=== PATIENT | male | born 1975 | race Caucasian/White ===

== ENCOUNTER 2017-06-29 14:22 | Observation (INO) | payer OTHER, SELFPAY ==
[2017-06-29] VITALS (12 sets, daily range): BP systolic 129–158; BP diastolic 68–109; PULSE 80–117; RESP 15–22; TEMP 36.7–37.1; O2SAT 95–99; BMI 25.9
--- NOTE | 2017-06-29 14:29 | RAD_ITS ---
STUDY: X-RAY CHEST REASON FOR EXAM: Male, 41 years old. Sudden onset of chest pain and shortness of breath. TECHNIQUE: Single AP portable view of the chest. COMPARISON: None. FINDINGS: EKG electrodes are seen. The lungs are clear and expanded. There is no demonstrated pleural abnormality. Normal size heart. Normal mediastinum and khang. Normal visualized pulmonary arteries. Normal visualized aortic arch and descending thoracic aorta. Normal visualized thoracic spine. Normal visualized ribs, clavicles, and shoulders. There is no demonstrated abnormality of the visualized soft tissue structures of the upper abdomen. RAD/Chest 1 View (Portable) IMPRESSION: Normal x-ray examination of the chest. Electronically Signed: Gerardo Larose MD at 14:49 EST Tel [phone], Service support ,
--- NOTE | 2017-06-29 14:29 | EKG12_ITS ---
Test Reason : REPEAT-CP Blood Pressure : / mmHG Vent. Rate : 091 BPM Atrial Rate : 091 BPM P-R Int : 140 ms QRS Dur : 090 ms QT Int : 364 ms P-R-T Axes : 024 -02 016 degrees QTc Int : 447 ms Normal sinus rhythm Nonspecific T wave abnormality Abnormal ECG Confirmed by KERA DESHPANDE, MATT ([id number]), avid editor USHA FENG ([id number]) on 07/02/2017 3:32:35 PM Referred By: PAMELA Confirmed By:MATT COTE MD
--- NOTE | 2017-06-29 14:52 | ED.VISSUMM ---
- ER Visit Summary Date of Service: 06/29/17 Chief Complaint: Chest pain History of Present Illness: The patient is a 41 M 3 of cra-hvejapo-ydhsunqzn diabetes currently diet-controlled. Prior smoker currently quitting. No known cardiac history. No prior cardiac cath or stress test or cardiac workup according to him. An hour ago he was driving to work said he felt a little lightheaded and got midsternal chest pain like someone standing on my chest. He states he never had pain like this before. He did get slightly nauseated with it, broke out in sweat and was short of breath. He denies any recent exertional symptoms. He has never had a DVT or PE. He denies any recent travel surgery or hospitalization. He denies any hemoptysis. He denies any pleuritic nature of the pain. He denies any calf pain or swelling. Squad was called for the patient's chest pain they gave him sublingual nitro ?2 and aspirin in the setting greatly reduced his pain. Currently says about a 2-4 out of 10. But he feels much better. Physical Examination: Middle-aged male. No acute distress. Vital signs are stable and afebrile. He does not look septic or toxic. He is currently in no acute distress. Pulse ox is 97% on room air no signs of hypoxia. HEENT exam unremarkable. Neck nontender. No JVD. Lungs clear to auscultation bilaterally. Heart regular rhythm rate about 110 no murmur. Chest wall is completely nontender there is no reproducible chest wall pain. Abdomen soft nontender. Normal bowel sounds no peritoneal signs. He is moving all 4 extremities. Calves are nontender without edema or cords. He has equal and symmetrical palpable radial pulses. Skin is unremarkable. Back exam normal. Neurologically is awake and alert without any focal motor deficits. Test Results: She will undergo cardiac workup. CBC normal with a normal H&H and white count. BMP unremarkable except for the glucose of 568. Normal anion gap of 15. Bicarbonate 15 normal BUN and creatinine. Troponin was normal. EKG was sinus tachycardia 111 no acute signs of OR or ischemia. Chest x-ray showed no acute process normal cardiac silhouette and mediastinum read both by myself the radiologist. Read repeat EKG prior to admission showed a sinus rhythm a rate of 91 with no acute abnormality. No signs of OR or ischemia. Emergency Department Course and Treatment: Topical nitroglycerin. Aspirin previously given by squad. Due to his elevated blood sugar was given subcu insulin. Treatment Plan: Repeat exam patient is doing much better 1520. Disposition: Admission Impression: Acute chest pain uncertain etiology resolved by nitroglycerin History of diabetes Hyperglycemia This note was generated with [employer] dictation software. It may contain incorrect words, spelling, and punctuation that were not noted in review of the chart prior to signing ED Disposition - Plan for ED Patient: Chief Complaint: Chest Pain Referrals: Chato Gusman MD [Primary Care Provider] -
[2017-06-29] MEDS: Nitroglycerin Oint 1 INCH PACKET TRANSDERM. (14:53)
--- NOTE | 2017-06-29 14:56 | ED.DCSUM_ITS ---
- ER Visit Summary Date of Service: 06/29/17 Chief Complaint: Chest pain History of Present Illness: The patient is a 41 M 3 of gcl-aagzhus-birspfopx diabetes currently diet-controlled. Prior smoker currently quitting. No known cardiac history. No prior cardiac cath or stress test or cardiac workup according to him. An hour ago he was driving to work said he felt a little lightheaded and got midsternal chest pain like someone standing on my chest. He states he never had pain like this before. He did get slightly nauseated with it, broke out in sweat and was short of breath. He denies any recent exertional symptoms. He has never had a DVT or PE. He denies any recent travel surgery or hospitalization. He denies any hemoptysis. He denies any pleuritic nature of the pain. He denies any calf pain or swelling. Squad was called for the patient's chest pain they gave him sublingual nitro ?2 and aspirin in the setting greatly reduced his pain. Currently says about a 2-4 out of 10. But he feels much better. Physical Examination: Middle-aged male. No acute distress. Vital signs are stable and afebrile. He does not look septic or toxic. He is currently in no acute distress. Pulse ox is 97% on room air no signs of hypoxia. HEENT exam unremarkable. Neck nontender. No JVD. Lungs clear to auscultation bilaterally. Heart regular rhythm rate about 110 no murmur. Chest wall is completely nontender there is no reproducible chest wall pain. Abdomen soft nontender. Normal bowel sounds no peritoneal signs. He is moving all 4 extremities. Calves are nontender without edema or cords. He has equal and symmetrical palpable radial pulses. Skin is unremarkable. Back exam normal. Neurologically is awake and alert without any focal motor deficits. Test Results: She will undergo cardiac workup. CBC normal with a normal H&H and white count. BMP unremarkable except for the glucose of 568. Normal anion gap of 15. Bicarbonate 15 normal BUN and creatinine. Troponin was normal. EKG was sinus tachycardia 111 no acute signs of MS or ischemia. Chest x-ray showed no acute process normal cardiac silhouette and mediastinum read both by myself the radiologist. Read repeat EKG prior to admission showed a sinus rhythm a rate of 91 with no acute abnormality. No signs of MS or ischemia. Emergency Department Course and Treatment: Topical nitroglycerin. Aspirin previously given by squad. Due to his elevated blood sugar was given subcu insulin. Treatment Plan: Repeat exam patient is doing much better 1520. Disposition: Admission Impression: Acute chest pain uncertain etiology resolved by nitroglycerin History of diabetes Hyperglycemia This note was generated with [employer] dictation software. It may contain incorrect words, spelling, and punctuation that were not noted in review of the chart prior to signing ED Disposition - Plan for ED Patient: Chief Complaint: Chest Pain Referrals: Chato Gusman MD [Primary Care Provider] -
[2017-06-29 14:59] LABS: Absolute Lymphocyte Count 1.87 X10^3/ul (0.83-4.51); Absolute Neutrophil Count 7.8 X10^3/uL (2.0-7.7); Basophil# 0.05 X10^3/uL; Basophil% 0.5 % (0-1); Eosinophils% 0.9 % (0-5); Hematocrit 44.3 % (40-54); Lymphocyte # 1.87 X10^3/ul (4.0); Lymphocyte % 17.6 % (19-41); Mean Corpuscular Volume 82.2 fL (80-94); Mean Platelet Vol. 9.9 fl (6.2-12.0); Monocyte# 0.76 X10^3/uL; Monocyte% 7.2 % (0-10); Neutrophil # 7.77 X10^3/uL (2.7-7.7); Neutrophil % 73.1 % (47-70); Platelet Count 309 K/mm3 (150-450); RBC Distribution Width CV 12.2 % (11.6-14.6); RBC Distribution Width SD 36.5 fl (35.1-43.9); Red Blood Count 5.39 M/mm3 (4.6-6.2); White Blood Count 10.6 K/mm3 (4.4-11.0)
[2017-06-29 15:01] LABS: Hemoglobin 15.8 g/dl (13.0-16.5)
[2017-06-29 15:02] LABS: Mean Corp Hgb Conc 35.7 g/gl (32-36); Mean Corpuscular Hgb 29.3 pg (27.0-32.0); POSITIVE COUNT NO; POSITIVE DIFFERENTIAL NO; POSITIVE MORPHOLOGY NO
[2017-06-29 15:05] LABS: Anion Gap 15 (5-15); BUN 14 mg/dL (7-18); BUN/Creat Ratio 13.7 RATIO (10-20); Calcium,Total 8.8 mg/dL (8.5-10.1); Chloride 106 mmol/L (98-107); Creatinine, Serum 1.02 mg/dL (0.70-1.30); EST Glomerular Filtration Rate 86 mL/min (>60); Est Glom Filt Rate - Afr Amer 104 mL/min (>60); Estimated Creatinine Clearance 100.39 ml/min; Glucose 568 mg/dL (74-106); Potassium 3.9 mmol/L (3.5-5.1); Sodium Level 136 mmol/L (136-145)
--- NOTE | 2017-06-29 15:23 | EKG12_ITS ---
Test Reason : CP Blood Pressure : / mmHG Vent. Rate : 111 BPM Atrial Rate : 111 BPM P-R Int : 130 ms QRS Dur : 086 ms QT Int : 322 ms P-R-T Axes : 040 -03 085 degrees QTc Int : 437 ms Sinus tachycardia Nonspecific T wave abnormality Abnormal ECG Confirmed by KERA DESHPANDE, MATT ([id number]), marketing editor USHA FENG ([id number]) on 07/02/2017 3:32:52 PM Referred By: PAMELA/DEMETRICE Confirmed By:MATT COTE MD
[2017-06-29] MEDS: 0.9% Normal Saline 1,000 ML 999 ML IV (15:28)
--- NOTE | 2017-06-29 16:35 | HP.PCM_ITS ---
Problem List (1) Atypical chest pain Status: Acute (2) Diabetes mellitus type 2 Status: Chronic (3) Bronchial asthma Status: Chronic History of Present Illness Date of Admission: 06/29/17 Chief Complaint: Chest pain today The patient is a 41 year old M with history of chronic stable asthma, no recent exacerbation, not using albuterol, diabetes mellitus type 2, diet-controlled, recently stopped metformin came to ER with sudden onset of left-sided chest tightness in the afternoon today. Chest pain started while he was driving, associated with mild shortness of breath, lightheadedness and diaphoresis. Chest pain was localized and much improved after sublingual nitro ?2 and aspirin but patient still has little bit pain. He denies any previous heart attack, coronary artery disease never had chest pain to this degree of severity. In ED, he had a chest x-ray is reported as normal. EKG shows sinus tachycardia at [address]-T changes. Basic lab work shows glucose 568. First troponin negative. [] Past Medical History Past Medical History (Chronic Problems): Chronic Problems Diabetes mellitus type 2 (Chronic) Bronchial asthma (Chronic) Allergies No Known Allergies Allergy (Verified 08/15/16 18:03) Smoking Status: Never smoker - *Family History Paternal History Items: - - His father does not have cardiac history but his uncles have. No family history of coronary artery disease in first-degree family Review of Systems Constitutional: Denies: Chills, Fever, Weight Change HEENT: Denies: Head Aches, Sinus Congestion, Sinus Drainage Cardiovascular: Reports: Chest Pain, Chest Tightness. Denies: Palpitations Respiratory: Reports: Shortness of breath at rest. Denies: Cough, Sputum production Gastrointestinal: Denies: Abdominal Pain, Nausea, Vomiting Genitourinary: Denies: Dysuria Musculoskeletal: Denies: Joint Pain, Joint Tenderness Skin: Denies: Rash, Wounds Neurological: Denies: Numbness, Tingling, Focal weakness Psychiatric: Denies: Anxiety, Depression, Homicidal Ideations, Suicidal Ideations Hematologic/ Lymphatic: Denies: Easy Bruising, Easy Bleeding VTE Information - Inpt Only VTE Present on Admission: No VTE Mechan Device Prophylaxis: SCD's VTE Pharm Prophylaxis ordered?: No Reason prophylaxis not ordered:: Procedure Not Indicated Patient Problems: Active and Suspected Problems Atypical chest pain (Acute) - Physical Exam General: Alert, Oriented x3, Cooperative HEENT: Atraumatic, PERRLA, EOMI, Normocephalic Oral: Moist Mucosa Neck: Supple, No JVD, Negative Carotid Bruits Lungs: Clear to auscultation, Normal air movement, No rhonchi, No wheeze, No rales Cardiovascular: Regular rate, Regular Rhythm, Normal S1, Normal S2, No murmurs Abdomen: Bowel Sounds Present, Soft, Non Tender, Non-Distended Extremities: No edema, Capillary Refill Less than 3 Seconds Skin: No rashes, No breakdown Musculoskeletal: No Tenderness to Palpation of Joints or Extremities Neurological: Cranial nerves II-XII grossly intact Psych/Mental Status: Normal Affect, Appropriate Vital Signs Temp Pulse Resp BP Pulse Ox 98.6 F 89 16 131/81 H 97 06/29/17 14:23 06/29/17 15:48 06/29/17 15:48 06/29/17 15:48 06/29/17 15:48 Oxygen Flow Rate 2 Oxygen Delivery Method Room Air Weight: 180 lb 5.763 oz Body Mass Index (BMI) 25.9 Laboratory Tests Past 24 Hrs 06/29/17 06/29/17 14:29 14:29 WBC 10.6 RBC 5.39 Hgb 15.8 Hct 44.3 MCV 82.2 MCH 29.3 MCHC 35.7 RDW 12.2 RDW Differential 36.5 Plt Count 309 MPV 9.9 Immature Gran % (Auto) 0.700 Neut % (Auto) 73.1 H Lymph % (Auto) 17.6 L Hayes % (Auto) 7.2 Eos % (Auto) 0.9 Baso % (Auto) 0.5 Absolute Neuts (auto) 7.8 H Absolute Lymphs (auto) 1.87 Total Counted Not Reportable Sodium 136 Potassium 3.9 Chloride 106 Carbon Dioxide 15.0 L Anion Gap 15 BUN 14 Creatinine 1.02 Estim Creat Clear Calc 100.39 Est GFR (MDRD) Af Amer 104 Est GFR (MDRD) Non-Af 86 BUN/Creatinine Ratio 13.7 Glucose 568 H* Calcium 8.8 Troponin I < 0.02 Assessment/Plan Active and Suspected Problems Atypical chest pain (Acute) The patient is a 41 year old M with history of chronic stable asthma, no recent exacerbation, not using albuterol, diabetes mellitus type 2, diet-controlled, recently stopped metformin came to ER with sudden onset of left-sided chest tightness in the afternoon today. Chest pain started while he was driving, associated with mild shortness of breath, lightheadedness and diaphoresis. Chest pain was localized and much improved after sublingual nitro ?2 and aspirin but patient still has little bit pain. He denies any previous heart attack, coronary artery disease never had chest pain to this degree of severity. In ED, he had a chest x-ray is reported as normal. EKG shows sinus tachycardia at [address]-T changes. Basic lab work shows glucose 568. First troponin negative. 1. Atypical chest pain with concern for acute coronary syndrome: Patient is being admitted on the cardiac floor. On ACS protocol with serial cardiac enzymes, aspirin, sublingual nitro as needed and nystatin. Fasting lipid profile tomorrow morning. Treadmill nuclear stress test tomorrow morning. 2. Diabetes mellitus type 2 adult onset: Patient not taking any oral hypoglycemic agent. A1c tomorrow a.m. Accu-Chek before meals and at bedtime and cover with NovoLog sliding scale. Started on Levemir 10 units subcu at bedtime daily. Medicaid Eligibility Specialist consult. 3. hypertension: Patient probably has undiagnosed hypertension. Blood pressure was 158/109 as per triage vitals. Currently 131/81. Added on lisinopril 5 mg oral daily. Chronic stable asthma: No recent exacerbation. Albuterol inhaler as needed. DVT prophylaxis: Low risk. On bilateral SCDs. No pharmacological prophylaxis is indicated. Laboratory Results 06/29/17 14:29: WBC 10.6, RBC 5.39, Hgb 15.8, Hct 44.3, MCV 82.2, MCH 29.3, MCHC 35.7, RDW 12.2, RDW Differential 36.5, Plt Count 309, MPV 9.9, Immature Gran % (Auto) 0.700, Neut % (Auto) 73.1 H, Lymph % (Auto) 17.6 L, Hayes % (Auto) 7.2, Eos % (Auto) 0.9, Baso % (Auto) 0.5, Absolute Neuts (auto) 7.8 H, Absolute Lymphs (auto) 1.87, Total Counted Not Reportable 06/29/17 14:29: Sodium 136, Potassium 3.9, Chloride 106, Carbon Dioxide 15.0 L, Anion Gap 15, BUN 14, Creatinine 1.02, Estim Creat Clear Calc 100.39, Est GFR ( MDRD) Af Amer 104, Est GFR (MDRD) Non-Af 86, BUN/Creatinine Ratio 13.7, Glucose 568 H*, Calcium 8.8, Troponin I < 0.02 Clinical Impression(s) from Imaging Studies Chest X-Ray 06/29/17 14:29 IMPRESSION: Normal x-ray examination of the chest. Electronically Signed: Gerardo Larose MD at 14:49 EST Tel [phone], Service support , Code Visit OBSV E&M: [id number] Initial observation care L3
[2017-06-29 17:37] LABS: Bedside Glucose 289 mg/dL (70-110)
[2017-06-29] MEDS: Lisinopril 5 MG Tablet PO (18:19)
[2017-06-29] MEDS: Acetaminophen 325 MG Tablet 650 MG PO (21:35)
[2017-06-29] MEDS: Atorvastatin Calcium 40 MG Tablet PO (21:36)
[2017-06-29 21:46] LABS: Bedside Glucose 266 mg/dL (70-110)
[2017-06-30 03:01] VITALS: PULSE 71
[2017-06-30 04:54] LABS: Absolute Lymphocyte Count 4.06 X10^3/ul (0.83-4.51); Absolute Neutrophil Count 5.1 X10^3/uL (2.0-7.7); Basophil# 0.04 X10^3/uL; Basophil% 0.4 % (0-1); Eosinophil# 0.22 X10^3/uL; Eosinophils% 2.1 % (0-5); Hematocrit 47.8 % (40-54); Hemoglobin 16.4 g/dl (13.0-16.5); Lymphocyte # 4.06 X10^3/ul (4.0); Lymphocyte % 38.7 % (19-41); Mean Corp Hgb Conc 34.3 g/gl (32-36); Mean Corpuscular Hgb 29.7 pg (27.0-32.0); Mean Corpuscular Volume 86.4 fL (80-94); Mean Platelet Vol. 9.5 fl (6.2-12.0); Monocyte# 0.98 X10^3/uL; Monocyte% 9.3 % (0-10); Neutrophil # 5.12 X10^3/uL (2.7-7.7); Neutrophil % 48.8 % (47-70); POSITIVE COUNT NO; POSITIVE DIFFERENTIAL NO; POSITIVE MORPHOLOGY NO; Platelet Count 288 K/mm3 (150-450); Prothrombin Time (Protime)PT. 13.2 SECONDS (11.7-14.9); RBC Distribution Width CV 12.4 % (11.6-14.6); RBC Distribution Width SD 39.5 fl (35.1-43.9); Red Blood Count 5.53 M/mm3 (4.6-6.2); White Blood Count 10.5 K/mm3 (4.4-11.0)
[2017-06-30 04:55] LABS: Partial Thromboplast Time 27.4 Seconds (24.1-36.2)
[2017-06-30 05:16] VITALS: BP 122/64; PULSE 80; RESP 18; TEMP 36.9; O2SAT 95
[2017-06-30] MEDS: Lisinopril 5 MG Tablet PO (05:20)
[2017-06-30] MEDS: Aspirin E.C. 81 MG Tablet PO (05:21)
[2017-06-30 05:28] LABS: Anion Gap 9 (5-15); BUN 11 mg/dL (7-18); BUN/Creat Ratio 12.8 RATIO (10-20); Chloride 103 mmol/L (98-107); Cholesterol 239 mg/dL (200); Creatinine, Serum 0.86 mg/dL (0.70-1.30); EST Glomerular Filtration Rate 105 mL/min (>60); Est Glom Filt Rate - Afr Amer 127 mL/min (>60); Estimated Creatinine Clearance 119.07 ml/min; Glucose 254 mg/dL (74-106); High Density Lipoprotein 57 mg/dL; Potassium 3.7 mmol/L (3.5-5.1); Sodium Level 139 mmol/L (136-145); Thyroid Stim Hormone (TSH) 0.92 uIU/mL (0.358-3.74); Triglycerides 101 mg/dL; Very Low Density Lipoprotein 20 mg/dL (5-40)
--- NOTE | 2017-06-30 05:55 | EKG12_ITS ---
Test Reason : AM EKG Blood Pressure : / mmHG Vent. Rate : 073 BPM Atrial Rate : 073 BPM P-R Int : 146 ms QRS Dur : 096 ms QT Int : 390 ms P-R-T Axes : -11 -08 014 degrees QTc Int : 429 ms Normal sinus rhythm Nonspecific T wave abnormality Confirmed by NARGIS DESHPANDE, JANETH ([id number]), technical writer and editor USHA FENG ([id number]) on 07/04/2017 3:04:19 PM Referred By: DR BARBER Confirmed By:JANETH BARILLAS MD
[2017-06-30 06:56] LABS: Bedside Glucose 265 mg/dL (70-110)
[2017-06-30 07:21] VITALS: PULSE 79
[2017-06-30 08:56] LABS: Hemoglobin A1c 11.6 % (4.2-6.3)
[2017-06-30 10:40] VITALS: BP 122/78; PULSE 88; RESP 18; TEMP 37.1; O2SAT 96
[2017-06-30 10:51] LABS: Bedside Glucose 295 mg/dL (70-110)
[2017-06-30 10:56] VITALS: PULSE 83
--- NOTE | 2017-06-30 11:33 | STRESSREP ---
Stress Test Report Exercise myocardial perfusion stress test 41-year-old man with a history of chest pain. Stress Protocol: Resting EKG demonstrates normal sinus rhythm with a rate of 79 bpm. Resting blood pressure is 120/80 mmHg. The patient exercised according to the regular Carlos protocol for total duration of 8 minutes completing 2 minutes into stage III of the Carlos protocol. The maximum heart rate attained was 157 bpm which was 86% of the maximum predicted heart rate the maximum workload attained was 10.[address] Were no ST or T-wave changes noted suggest ischemia upsloping ST changes only were noted. The resting blood pressure is 134/84 with a peak blood pressure 164/72. Myocardial perfusion protocol. 11.8 mCi of technetium 99m sestamibi injected at rest. The patient then exercised for 8 minutes attaining 86% of the maximum predicted heart rate and a workload of 10.1 metabolic equivalents. At peak exercise 35.2 mCi of technetium 99m sestamibi was injected. Stress images were obtained. Stress and rest images were reconstructed and compared in the short axis vertical long and horizontal long axis. Gated images were also obtained. Perfusion SPECT analysis. Review of the images demonstrate normal uptake of tracer noted in all areas of the myocardium on the stress images. There is some GI attenuation artifact noted. The resting images similarly demonstrate normal uptake of tracer noted in all areas of the myocardium with the GI attenuation artifact. No reversibility is noted suggest ischemia no previous infarct is noted. Gated SPECT analysis: The gated ejection fraction is noted to be 53%. Conclusion: Normal exercise myocardial perfusion stress test at a high workload. Preserved ejection fraction.
--- NOTE | 2017-06-30 14:25 | DCINST_ITS ---
- Discharge Diagnoses Current Active Problems: Current Active and Chronic Problems Atypical chest pain (Acute) Diabetes mellitus type 2 (Chronic) Bronchial asthma (Chronic) You will use the following diet at home:: Other - Cardiac/low cholesterol, carbohydrate controlled Discharge Activity: Return to Normal Activity Call your doctor if you observe: Fever of 101 or Higher, Shortness of breath, Dizziness, Fainting spells, Chest pain, Increased palpitations (irregular heartbeat) Additional Instructions: You will need to check your blood sugar 3 times daily before meals and at bedtime. Recommend follow-up with an paralegal instructor to better manage your diabetes. Allergies/Adverse Reactions: Allergies No Known Allergies Allergy (Verified 08/15/16 18:03) Medications to take at Discharge Atorvastatin Calcium [Lipitor] 40 mg PO QHS #30 tab 06/30/17 Insulin Aspart [Novolog Flexpen] See Protocol SC ACHS #1 flexpen 06/30/17 Insulin Detemir [Levemir FlexPen] 20 units SC QHS #1 insuln.pen 06/30/17 Lisinopril [Zestril] 5 mg PO DAILY #30 tab 06/30/17 The following prescriptions were given: Atorvastatin Calcium [Lipitor] 40 mg PO QHS #30 tab Insulin Aspart [Novolog Flexpen] See Protocol SC ACHS #1 flexpen Insulin Detemir [Levemir FlexPen] 20 units SC QHS #1 insuln.pen Lisinopril [Zestril] 5 mg PO DAILY #30 tab Primary Care Physician: Chato Gusman MD [Primary Care Provider] - Please follow up with your Primary Care Physician in: 1 Week Please Follow Up With: Elina Mcbride NP-C When: 1 Week Proposed Discharge Date: 06/30/17
--- NOTE | 2017-06-30 14:29 | PCM.DC.SUM ---
Discharge Date and Diagnosis Date of Admission: 06/29/17 Date of Discharge: 06/30/17 - - Primary Discharge Diagnosis Active and Suspected Problems Atypical chest pain- ACS ruled out Uncontrolled type 2 diabetes mellitus - Secondary Discharge Diagnosis Chronic Problems Diabetes mellitus type 2 (Chronic) Bronchial asthma (Chronic) HTN HLD Hospital Course and Treatment Imaging Results: Diagnostic Data Chest X-Ray 06/29/17 14:29 IMPRESSION: Normal x-ray examination of the chest. Electronically Signed: Gerardo Larose MD at 14:49 EST Tel [phone], Service support , Operations: None Procedures: Stress test Summary of Care Provided: The patient is a 41 year old M admitted 06/29/17 due to chest pain. He has a past medical history of chronic stable asthma, type 2 diabetes mellitus, hypertension. Acute coronary syndrome ruled out. Patient underwent nuclear stress test which was negative for ischemia. Troponin negative ?4. Patient denies further chest pain. Blood glucose was found to be 568 on admission. Hemoglobin A1c 11.6%. Patient states he was previously on metformin but recently has been diet-controlled. Patient was started on sliding scale insulin and Levemir 20 units nightly. Recommend follow-up with REAL mcbride, endocrinology for closer monitoring of diabetes. Patient was started on a statin for hyperlipidemia. Patient previously on lisinopril which she states was discontinued for unknown reason. Patient's blood pressure was elevated during admission. He was started on lisinopril 5 mg daily and blood pressure improved. Recommend continued monitoring by primary care physician. Patient has blood glucose testing supplies at home and was instructed on how to use insulin and when to notify provider. Patient seen and examined prior to discharge. Denies further chest pain. Heart rate regular rate and rhythm. Lungs clear. Abdomen soft, nontender. Neuro grossly intact. Vital signs stable. Patient is stable for discharge home with the recommendations as noted above. This patient was seen by JESSEE Villatoro under the supervision of Dr. Puga. Discharge Diet: Low fat/ Low Cholesterol, Carb Control Diet Discharge Activity: Return to Normal Activity Call your doctor if you observe: Fever of 101 or Higher, Shortness of breath, Dizziness, Fainting spells, Chest pain, Increased palpitations (irregular heartbeat) Home Medications: Medications to take at Discharge Atorvastatin Calcium [Lipitor] 40 mg PO QHS #30 tab 06/30/17 Insulin Aspart [Novolog Flexpen] See Protocol SC ACHS #1 flexpen 06/30/17 Insulin Detemir [Levemir FlexPen] 20 units SC QHS #1 insuln.pen 06/30/17 Lisinopril [Zestril] 5 mg PO DAILY #30 tab 06/30/17 Following Prescrptions Were Given to Patient: Atorvastatin Calcium [Lipitor] 40 mg PO QHS #30 tab Insulin Aspart [Novolog Flexpen] See Protocol SC ACHS #1 flexpen Insulin Detemir [Levemir FlexPen] 20 units SC QHS #1 insuln.pen Lisinopril [Zestril] 5 mg PO DAILY #30 tab Primary Care Physician: Chato Gusman MD [Primary Care Provider] - Please follow up with your Primary Care Physician in: 1 Week Please Follow Up With: Elina Mcbride SPARE HAND-C When: 1 Week Disposition: Home Minutes spent on discharge:: 35 Patient Condition:: Stable Meaningful Use Info Meaningful Use Diagnoses (Choose all that apply): None applicable
--- NOTE | 2017-06-30 14:37 | DS.PCM_ITS ---
Discharge Date and Diagnosis Date of Admission: 06/29/17 Date of Discharge: 06/30/17 - - Primary Discharge Diagnosis Active and Suspected Problems Atypical chest pain- ACS ruled out Uncontrolled type 2 diabetes mellitus - Secondary Discharge Diagnosis Chronic Problems Diabetes mellitus type 2 (Chronic) Bronchial asthma (Chronic) HTN HLD Hospital Course and Treatment Imaging Results: Diagnostic Data Chest X-Ray 06/29/17 14:29 IMPRESSION: Normal x-ray examination of the chest. Electronically Signed: Gerardo Larose MD at 14:49 EST Tel [phone], Service support , Operations: None Procedures: Stress test Summary of Care Provided: The patient is a 41 year old M admitted 06/29/17 due to chest pain. He has a past medical history of chronic stable asthma, type 2 diabetes mellitus, hypertension. Acute coronary syndrome ruled out. Patient underwent nuclear stress test which was negative for ischemia. Troponin negative ?4. Patient denies further chest pain. Blood glucose was found to be 568 on admission. Hemoglobin A1c 11.6%. Patient states he was previously on metformin but recently has been diet-controlled. Patient was started on sliding scale insulin and Levemir 20 units nightly. Recommend follow-up with [facility], endocrinology for closer monitoring of diabetes. Patient was started on a statin for hyperlipidemia. Patient previously on lisinopril which she states was discontinued for unknown reason. Patient's blood pressure was elevated during admission. He was started on lisinopril 5 mg daily and blood pressure improved. Recommend continued monitoring by primary care physician. Patient has blood glucose testing supplies at home and was instructed on how to use insulin and when to notify provider. Patient seen and examined prior to discharge. Denies further chest pain. Heart rate regular rate and rhythm. Lungs clear. Abdomen soft, nontender. Neuro grossly intact. Vital signs stable. Patient is stable for discharge home with the recommendations as noted above. This patient was seen by JESSEE Villatoro under the supervision of Dr. Puga. Discharge Diet: Low fat/ Low Cholesterol, Carb Control Diet Discharge Activity: Return to Normal Activity Call your doctor if you observe: Fever of 101 or Higher, Shortness of breath, Dizziness, Fainting spells, Chest pain, Increased palpitations (irregular heartbeat) Home Medications: Medications to take at Discharge Atorvastatin Calcium [Lipitor] 40 mg PO QHS #30 tab 06/30/17 Insulin Aspart [Novolog Flexpen] See Protocol SC ACHS #1 flexpen 06/30/17 Insulin Detemir [Levemir FlexPen] 20 units SC QHS #1 insuln.pen 06/30/17 Lisinopril [Zestril] 5 mg PO DAILY #30 tab 06/30/17 Following Prescrptions Were Given to Patient: Atorvastatin Calcium [Lipitor] 40 mg PO QHS #30 tab Insulin Aspart [Novolog Flexpen] See Protocol SC ACHS #1 flexpen Insulin Detemir [Levemir FlexPen] 20 units SC QHS #1 insuln.pen Lisinopril [Zestril] 5 mg PO DAILY #30 tab Primary Care Physician: Chato Gusman MD [Primary Care Provider] - Please follow up with your Primary Care Physician in: 1 Week Please Follow Up With: [facility] When: 1 Week Disposition: Home Minutes spent on discharge:: 35 Patient Condition:: Stable Meaningful Use Info Meaningful Use Diagnoses (Choose all that apply): None applicable
--- NOTE | 2017-09-10 09:49 | CASEMGMT ---
[facility] received fax from [facility] in regards to pt not picking up meds from visit in June. Call placed to Dr. Naseem Melissa's CM, and she advises to fax paperwork to Dr. Gusman's office at [phone] at this time and she will let them know at this time. She states that they will f/u with pt. Kaylyn VAZQUEZ CM
== END 2017-06-30 11:51 | disposition home or self-care (01) ==
LOC: ED 14:48 → PCU 16:27
PROVIDERS: Admitting Provider Internal Medicine; Emergency Provider Emergency Medicine; Family Provider Family Medicine; PCP Family Medicine; Visit Provider Internal Medicine
DX: R07.89 Other chest pain (principal); J45.909 Unspecified asthma, uncomplicated; I10 Essential (primary) hypertension; R00.0 Tachycardia, unspecified; R42 Dizziness and giddiness; E11.65 Type 2 diabetes mellitus with hyperglycemia; E78.5 Hyperlipidemia, unspecified; Z87.891 Personal history of nicotine dependence
CPT/HCPCS: 36415; 71045; 78452; 80048; 80061; 82962; 83036; 84443; 84484; 85025; 85379; 85610; 85730; 93005; 93017; 97802; 99218; 99285; 99406; A9500; J7030; A4216; G0378

== ENCOUNTER 2017-12-21 17:09 | Emergency (ER) | payer OTHER, SELFPAY ==
[2017-12-21 17:09] VITALS: BP 137/101; PULSE 119; RESP 16; TEMP 37.2; O2SAT 98; BMI 29.0
--- NOTE | 2017-12-21 18:01 | CT_ITS ---
STUDY: CT BRAIN WITHOUT CONTRAST REASON FOR EXAM: Male, 42 years old. Fell down 8-10 steps. RADIATION DOSAGE (If Supplied By Facility): CTDIvol = ( 44.99 ) mGy, DLP = ( 812.98 ) mGycm TECHNIQUE: Transaxial CT imaging of the brain was performed without administration of intravenous contrast material. Individualized dose optimization techniques were used for this CT. COMPARISON: None. FINDINGS: Normal soft tissue structures. Normal calvarium. Normal size ventricles and extra-axial spaces for the patient's age. Normal white matter tracts of the cerebral hemispheres. Normal basal ganglia and thalami. Normal brainstem. Normal cerebellum. There is no intracranial hemorrhage. There are no findings of an acute ischemic infarction. Normal visualized paranasal sinuses. CT/Brain/Head without Contrast IMPRESSION: Normal unenhanced CT scan of the brain. Electronically Signed: Dov Sow DO at 18:45 EDT Tel [phone], Service support ,
--- NOTE | 2017-12-21 18:01 | CT_ITS ---
STUDY: CT CERVICAL SPINE WITHOUT CONTRAST REASON FOR EXAM: Male, 42 years old. Fell down 8-10 steps. RADIATION DOSAGE (If Supplied By Facility): CTDIvol = ( 21.32 ) mGy, DLP = ( 517.98 ) mGycm TECHNIQUE: High resolution transaxial imaging was performed without contrast material. Sagittal and coronal images were reconstructed. Individualized dose optimization techniques were used for this CT. COMPARISON: None FINDINGS: Normal craniovertebral junction. Normal anterior atlantoaxial articulation. Normal odontoid process. Normal cervical lordosis. Normal vertebral bodies and posterior osseous elements. C2-3: Normal endplates. There is loss of disc height. Normal central canal and intervertebral neuroforamina. C3-4: Normal endplates. There is minimal loss of disc height. There is mild facet and uncovertebral joint degenerative change. Normal central canal. There is mild narrowing the left intervertebral neuroforamen. C4-5: There is minimal endplate spondylosis with loss of disc height. There is mild facet and uncovertebral joint degenerative change. Normal central canal and intervertebral neuroforamina. C5-6: There is minimal endplate spondylosis with slight loss of disc height. There is facet and uncovertebral joint degenerative disease. Normal central canal. There is mild narrowing of the bilateral intervertebral neuroforamina. C6-7: There is loss of disc height with endplate spondylosis. There is facet and uncovertebral joint degenerative change. Normal central canal. There is narrowing of the bilateral intervertebral neuroforamina left greater than right. C7-T1: There is endplate spondylosis with loss of disc height. There is facet joint degenerative change. Normal central canal and intervertebral neuroforamina. Normal visualized soft tissue structures. CT/Spine Cervical without Contras IMPRESSION: Mild degenerative changes of the cervical spine without acute fracture or subluxation. Electronically Signed: Dov Sow DO at 18:49 EDT Tel [phone], Service support ,
--- NOTE | 2017-12-21 19:07 | ED.DCSUM_ITS ---
- ER Visit Summary Date of Service: 12/21/17 Chief Complaint: Head injury History of Present Illness: The patient is a 42 M who states that he was at work today when he tripped and fell down 8-10 stairs. He states he thinks he lost consciousness. He notes a headache in the occiput. He notes a bruise to his right knee into his right elbow. Physical Examination: Afebrile vital signs stable. Gen: Well-nourished well-developed Head: Normocephalic tender palpation to his occiput Eyes: Perrl EOMI ENT: TMs clear no rhinorrhea moist mucous membranes Neck: Supple no lymphadenopathy no JVD nontender CVS: Regular rate rhythm no murmurs normal S1-S2 Respiratory: No distress clear to auscultation bilaterally chest nontender Abdomen: Soft nontender nondistended normal bowel sounds no masses Back: Nontender Extremity: All the erythema to the anterior right knee. There is mild redness tenderness to the right elbow. Full range of motion of each. Skin: Normal color no rash Neuro: alert orientated ?3 CN II-XII intact normal strength sensation reflexes gait cerebellar Psych: Normal affect normal mood Test Results: CT scan of the head and neck were negative for acute Emergency Department Course and Treatment: Patient received Tylenol. He will be discharged home to follow-up with [employer]. Impression: 1. Concussion 2. Right elbow knee contusion This note was generated with [employer] dictation software. It may contain incorrect words, spelling, and punctuation that were not noted in review of the chart prior to signing ED Disposition - Plan for ED Patient: Disposition: Home or Assisted Living Chief Complaint: Fall Instructions: ED Head Injury Closed Referrals: [facility] [GROUP OF PHYSICIANS] - 3-5 Days
[2017-12-21] MEDS: Acetaminophen 500 MG Tablet 1000 MG PO (19:19)
[2017-12-21 19:22] VITALS: BP 146/95; PULSE 96; RESP 16; O2SAT 92
[2017-12-21 19:26] VITALS: RESP 16
== END 2017-12-21 19:26 | disposition home or self-care (01) ==
PROVIDERS: Emergency Provider Emergency Medicine; Family Provider Family Medicine; PCP Family Medicine
DX: S06.0X9A Concussion with loss of consciousness of unspecified duration, initial encounter (principal); S80.01XA Contusion of right knee, initial encounter; S50.01XA Contusion of right elbow, initial encounter; W10.9XXA Fall (on) (from) unspecified stairs and steps, initial encounter; Y93.9 Activity, unspecified; Y92.9 Unspecified place or not applicable
CPT/HCPCS: 70450; 72125; 99283

== ENCOUNTER 2017-12-29 21:02 | Emergency (ER) | payer OTHER, SELFPAY ==
[2017-12-29 21:02] VITALS: BP 162/98; PULSE 93; RESP 14; TEMP 36.5; O2SAT 97; BMI 27.1
[2017-12-29 21:10] VITALS: O2SAT 97
--- NOTE | 2017-12-29 21:38 | CT_ITS ---
STUDY: CT BRAIN WITHOUT CONTRAST REASON FOR EXAM: Male, 42 years old. Concussion. Slurred speech. RADIATION DOSAGE (If Supplied By Facility): CTDIvol = ( 44.99 ) mGy, DLP = ( 863.60 ) mGycm TECHNIQUE: Transaxial CT imaging of the brain was performed without administration of intravenous contrast material. Individualized dose optimization techniques were used for this CT. COMPARISON: 12/21/2017 FINDINGS: Normal soft tissue structures. Normal calvarium. Normal size ventricles and extra-axial spaces for the patient's age. Normal white matter tracts of the cerebral hemispheres. Normal basal ganglia and thalami. Normal brainstem. Normal cerebellum. There is no intracranial hemorrhage. There are no findings of an acute ischemic infarction. Normal visualized paranasal sinuses. CT/Brain/Head without Contrast IMPRESSION: Normal unenhanced CT scan of the brain. Electronically Signed: Sergio Vences MD at 22:30 EDT , Service support ,
[2017-12-29] MEDS: Acetaminophen 500 MG Tablet 1000 MG PO (22:14)
[2017-12-29] MEDS: Ondansetron 4 MG/2 ML Vial IV (22:15)
--- NOTE | 2017-12-29 22:22 | ED.VISSUMM ---
- ER Visit Summary Date of Service: 12/29/17 Chief Complaint: Head injury History of Present Illness: The patient is a 42 M who had a fall at work on December 21 and was diagnosed with a concussion. Patient does note that he been feeling pretty well and increase his activity over the past couple of days. He went back to work today. He had increased headache, difficulty focusing his eyes, nausea, vomiting, and had some problems with slurred speech earlier. Patient has not taken Tylenol since yesterday. There is been no new head injury. Physical Examination: Vital signs significant for blood pressure of 162/98, otherwise unremarkable. Head and neck examination reveals no obvious external sign of trauma. He has some tenderness over the upper occiput. There is no C-spine tenderness. Heart is regular rate and rhythm. Lung sounds are clear. Abdomen is soft nontender. Neuro exam is unremarkable. Test Results: CT scan of the head is unremarkable. Emergency Department Course and Treatment: Patient is given IV fluids, Zofran, and Tylenol. Repeat evaluation he does feel improved. I discussed with the patient as well as family at bedside that symptoms of a concussion can persist for up to 6 weeks. Patient has had multiple concussions in the past so he may require more time for healing this time. Blood pressure is currently 144/109. Blood sugar will be checked prior to discharge as well. Treatment Plan: [] Disposition: Discharge Impression: Concussion This note was generated with [employer] dictation software. It may contain incorrect words, spelling, and punctuation that were not noted in review of the chart prior to signing ED Disposition - Plan for ED Patient: Chief Complaint: Head Injury Referrals: Chato Gusman MD [Primary Care Provider] -
--- NOTE | 2017-12-29 22:50 | ED.DEP ---
ED Disposition - Plan for ED Patient: Disposition: Home or Assisted Living Chief Complaint: Head Injury Instructions: ED Concussion Prescriptions: Ondansetron [Zofran Odt] 4 mg PO Q8H PRN PRN #10 tablet PRN Reason: Nausea Referrals: Chato Gusman MD [Primary Care Provider] - [facility] [GROUP OF PHYSICIANS] - 2 Days
[2017-12-29 22:55] LABS: Bedside Glucose 226 mg/dL (70-110)
[2017-12-29] MEDS: 0.9% Normal Saline 1,000 ML 150 ML IV (22:55)
[2017-12-29 22:59] VITALS: BP 158/86; PULSE 88; RESP 18; O2SAT 98
== END 2017-12-29 23:00 | disposition home or self-care (01) ==
PROVIDERS: Emergency Provider Emergency Medicine; Family Provider Family Medicine; PCP Family Medicine
DX: S06.0X9A Concussion with loss of consciousness of unspecified duration, initial encounter (principal); W19.XXXA Unspecified fall, initial encounter; Y93.9 Activity, unspecified; Y92.9 Unspecified place or not applicable; J45.909 Unspecified asthma, uncomplicated; E11.9 Type 2 diabetes mellitus without complications; E78.00 Pure hypercholesterolemia, unspecified; F41.9 Anxiety disorder, unspecified; F32.9 Major depressive disorder, single episode, unspecified; Z79.4 Long term (current) use of insulin; Z79.899 Other long term (current) drug therapy; Z72.0 Tobacco use
CPT/HCPCS: 70450; 82962; 96361; 96374; 99284; J7030; J7040; J2405

== ENCOUNTER 2019-02-10 19:05 | Emergency (ER) | payer OTHER, SELFPAY ==
[2018-11-23 10:30] VITALS: BMI 25.9
[2019-02-10 19:06] VITALS: BP 142/98; PULSE 102; RESP 20; TEMP 37; O2SAT 95; BMI 27.1
--- NOTE | 2019-02-10 19:11 | RAD_ITS ---
STUDY: X-RAY - RIGHT ANKLE REASON FOR EXAM: Male, 43 years old. Trauma TECHNIQUE: 3 view(s) of the ankle. COMPARISON: None. FINDINGS: There is an old unfused fracture of the distal fibula plafond. There is no evidence for acute fracture at this time.. The tibia is intact. Normal medial and lateral malleoli. Normal tibiotalar articulation and ankle mortise. Normal visualized talus and calcaneus. The visualized subtalar, talonavicular, calcaneocuboid and tarsal articulations are normal. The soft tissue structures are unremarkable. RAD/Ankle min 3 Views IMPRESSION: No evidence for acute fracture or dislocation Electronically Signed: Feroz Chauhan MD at 19:53 EDT , Service support ,
--- NOTE | 2019-02-10 20:36 | ED.DCSUM_ITS ---
- ER Visit Summary Date of Service: 02/10/19 Chief Complaint: Right ankle injury History of Present Illness: The patient is a 43 M presenting with right ankle injury. Patient states that he was at work. He was chasing a child. He rolled his ankle. He did not fall or hit his head. He tried aspirin at home. He denies other injuries. Physical Examination: Vitals are stable. Patient is afebrile. Alert no acute distress. HEENT exam is unremarkable. Neck is nontender Lungs are clear and equal bilaterally. Heart is regular rate and rhythm. Abdomen is soft nontender nondistended. Extremities right lateral ankle tenderness. Mild swelling. No deformity. Normal distal pulses. Lutz test negative. No proximal fibula tenderness. No fifth metatarsal tenderness. Skin is warm and dry. No focal neurologic deficit. Remainder of exam is unremarkable. Emergency Department Course and Treatment: Right ankle x-ray shows no acute process. Patient is advised to ice and elevate. He is given an Aircast. He declines crutches. Advised use NSAIDs for pain. Advised to follow-up with [facility] care. Advised return the ED for worsening complaints. Disposition: Discharge home Impression: Right ankle sprain This note was generated with [employer] dictation software. It may contain incorrect words, spelling, and punctuation that were not noted in review of the chart prior to signing ED Disposition - Plan for ED Patient: Disposition: Home or Assisted Living Instructions: Sprain, Ankle, with X-Ray Referrals: [facility] [GROUP OF PHYSICIANS] - Chato Gusman MD [Primary Care Provider] -
--- NOTE | 2019-02-10 20:37 | DCINST.ED_ITS ---
ED Disposition - Plan for ED Patient: Instructions: Sprain, Ankle, with X-Ray Referrals: Chato Gusman MD [Primary Care Provider] - [facility] [GROUP OF PHYSICIANS] -
--- NOTE | 2019-02-10 20:37 | ED.DEP ---
ED Disposition - Plan for ED Patient: Instructions: Sprain, Ankle, with X-Ray Referrals: Chato Gusman MD [Primary Care Provider] - [facility] [GROUP OF PHYSICIANS] -
[2019-02-10 20:57] VITALS: PULSE 73; RESP 18; O2SAT 98
--- NOTE | 2019-02-10 20:59 | ED.RN ---
THIS NURSE REVIEWED D/C INSTRUCTIONS WITH PT. PT VERBALIZED UNDERSTANDING OF INSTRUCTIONS. PT DENIES FURTHER NEEDS OR QUESTIONS AT THIS TIME. PT AMBULATES FROM ROOM ON OWN WITHOUT ASSISTANCE FROM STAFF
== END 2019-02-10 21:00 | disposition home or self-care (01) ==
PROVIDERS: Emergency Provider Emergency Medicine; Family Provider Family Medicine; PCP Family Medicine
DX: S93.401A Sprain of unspecified ligament of right ankle, initial encounter (principal); X50.1XXA Overexertion from prolonged static or awkward postures, initial encounter; Y93.9 Activity, unspecified; Y92.9 Unspecified place or not applicable; E11.9 Type 2 diabetes mellitus without complications; Z79.4 Long term (current) use of insulin
CPT/HCPCS: 73610; 99283

== ENCOUNTER 2019-03-08 19:24 | Emergency (ER) | payer OTHER, SELFPAY ==
[2019-03-08 19:24] VITALS: BP 166/98; PULSE 103; RESP 18; TEMP 36.5
[2019-03-08 19:25] VITALS: BP 166/98; PULSE 103; RESP 18; TEMP 36.5; BMI 27.6
--- NOTE | 2019-03-08 20:51 | ED.VISSUMM ---
- ER Visit Summary Date of Service: 03/08/19 Chief Complaint: Left index finger laceration History of Present Illness: The patient is a 43 M presenting with left index finger laceration. Patient states this happened around noon today. He was using a knife with his right hand. He is right-handed. He slipped and cut his left index finger. He states this was accidental. It was not work-related. Tetanus is up-to-date. He states it has continued to bleed throughout the day. No other complaints. Physical Examination: Vitals are stable. Patient is afebrile. Alert no acute distress. HEENT exam is unremarkable. Neck is supple. Lungs are clear and equal bilaterally. Heart is regular rate and rhythm. Extremities 2 cm laceration left index finger, tendon function is normal. Normal cap refill. Skin is warm and dry. No focal neurologic deficit. Remainder of exam is unremarkable. Emergency Department Course and Treatment: Wound was irrigated. Laceration was anesthetized with lidocaine. 4, 5-0 simple sutures were placed. Patient tolerated this well. Advised wound care instructions. Advised return to the ED for worsening complaints. Disposition: Discharge home Impression: Left index finger laceration, laceration repair This note was generated with [employer] dictation software. It may contain incorrect words, spelling, and punctuation that were not noted in review of the chart prior to signing ED Disposition - Plan for ED Patient: Instructions: LACERATION, Hand Referrals: Chato Gusman MD [Primary Care Provider] -
[2019-03-08] MEDS: HYDROcodone Bitartrate/Apap 5/325 Tablet PO (22:05)
[2019-03-08 22:08] VITALS: BP 154/60; PULSE 89; RESP 18; O2SAT 96
== END 2019-03-08 22:08 | disposition home or self-care (01) ==
PROVIDERS: Emergency Provider Emergency Medicine; Family Provider Family Medicine; PCP Family Medicine
DX: S61.211A Laceration without foreign body of left index finger without damage to nail, initial encounter (principal); W26.0XXA Contact with knife, initial encounter; Y93.9 Activity, unspecified; Y92.9 Unspecified place or not applicable
CPT/HCPCS: 12001; 99284

== ENCOUNTER 2019-07-01 21:30 | Emergency (ER) | payer OTHER, SELFPAY ==
[2019-07-01 21:30] VITALS: BP 140/108; PULSE 95; RESP 16; TEMP 36.6; O2SAT 99; BMI 29.4
--- NOTE | 2019-07-01 22:00 | RAD_ITS ---
STUDY: X-RAY - RIGHT ANKLE REASON FOR EXAM: Male, 43 years old. RIGHT ANKLE PAIN AFTER FALL TECHNIQUE: 3 view(s) of the ankle. COMPARISON: None. FINDINGS: Normal visualized distal tibia and fibula. Small medial malleolus osteophyte. Normal tibiotalar articulation and ankle mortise. Normal visualized talus and calcaneus. The visualized subtalar, talonavicular, calcaneocuboid and tarsal articulations are normal. The soft tissue structures are unremarkable. RAD/Ankle min 3 Views IMPRESSION: No acute osseous injury is evident. Electronically Signed: Chato Archibald MD at 22:30 EST Tel , Service support ,
--- NOTE | 2019-07-01 22:35 | ED.DCSUM_ITS ---
- ER Visit Summary Date of Service: 07/01/19 Chief Complaint: Right ankle pain History of Present Illness: The patient is a 43 M who presents with right ankle pain that began tonight. Patient states he slipped in the mud and inverted his right ankle. Patient describes the pain as throbbing. Patient states the pain improves by putting pressure on his ankle area. Patient denies any paresthesias or weakness. Patient denies any head injury or loss of consciousness. Patient denies any other injuries. Patient denies any pain over the fifth metatarsal or proximal fibula. Physical Examination: Vital signs are stable. Patient is afebrile. Patient is in no acute distress. Musculoskeletal exam reveals tenderness over the lateral aspect of the right ankle. There is mild edema. There is no ecchymosis. There is no deformity. Range of motion was limited in all motions of the right ankle secondary to pain. There is no laxity appreciated however there was some guarding noted. Pedal pulses are equal bilaterally. Sensation was intact to light touch in all digits. Capillary refill was less than 2 seconds in all digits. There is no tenderness over the fifth metatarsal or proximal fibula. Test Results: X-rays of the right ankle were obtained. There is no acute fracture. This was interpreted by the radiologist and myself. Emergency Department Course and Treatment: Patient was given Aircast for his ri ght ankle. Patient was instructed to ice and elevate the right ankle. Patient was instructed to follow-up with his primary care physician in 5 to 7 days. Patient was instructed to take Tylenol or ibuprofen as needed for pain. Patient understood and was agreeable with the plan. All questions were answered. Disposition: Discharge home Impression: Acute sprain right ankle This note was generated with [employer] dictation software. It may contain incorrect words, spelling, and punctuation that were not noted in review of the chart prior to signing ED Disposition - Plan for ED Patient: Disposition: Home or Assisted Living Diagnosis: Right ankle sprain Instructions: Sprain, Ankle, with X-Ray Referrals: Chato Gusman MD [Primary Care Provider] - 5-7 Days
== END 2019-07-01 22:56 | disposition home or self-care (01) ==
PROVIDERS: Emergency Provider Emergency Medicine; PCP Family Medicine
DX: S93.401A Sprain of unspecified ligament of right ankle, initial encounter (principal); W01.0XXA Fall on same level from slipping, tripping and stumbling without subsequent striking against object, initial encounter; Y93.9 Activity, unspecified; Y92.9 Unspecified place or not applicable; R05 Cough; R11.2 Nausea with vomiting, unspecified; E11.9 Type 2 diabetes mellitus without complications
CPT/HCPCS: 73610; 99283

== ENCOUNTER → 2020-02-05 14:16 | Outpatient (CLI) | payer OTHER, SELFPAY ==
[2020-02-05 13:06] VITALS: BMI 29.4
[2020-02-05 15:21] LABS: Absolute Lymphocyte Count 2.24 X10^3/uL (0.83-4.51); Absolute Neutrophil Count 5.3 X10^3/uL (2.0-7.7); Basophil# 0.07 X10^3/uL; Basophil% 0.8 % (0-1); Eosinophil# 0.13 X10^3/uL; Eosinophils% 1.5 % (0-5); Hemoglobin 16.7 g/dL (13.0-16.5); Lymphocyte # 2.24 X10^3/ul (4.0); Lymphocyte % 25.9 % (19-41); Mean Corp Hgb Conc 34.8 g/dL (32-36); Mean Corpuscular Hgb 30.1 pg (27.0-32.0); Mean Corpuscular Volume 86.6 fL (80-94); Mean Platelet Vol. 9.9 fl (6.2-12.0); Monocyte# 0.81 X10^3/uL; Monocyte% 9.4 % (0-10); NRBC Flagged by Analyzer 0 % (0-5); Neutrophil # 5.31 X10^3/uL (2.7-7.7); Neutrophil % 61.5 % (47-70); Platelet Count 344 K/mm3 (150-450); RBC Distribution Width CV 11.6 % (11.6-14.6); RBC Distribution Width SD 36.7 fl (35.1-43.9); Red Blood Count 5.54 M/mm3 (4.6-6.2); White Blood Count 8.6 K/mm3 (4.4-11.0)
[2020-02-05 15:50] LABS: Hemoglobin A1c 11.2 % (3.8-5.6)
[2020-02-05 16:04] LABS: AST(SGOT) 15 U/L (15-37); Alanine Aminotransfer ALT/SGPT 30 U/L (16-61); Albumin, Serum 4.1 g/dL (3.2-5.0); Alkaline Phosphatase 71 U/L (45-117); Anion Gap 9 (5-15); BUN 12 mg/dL (7-18); BUN/Creat Ratio 13.5 RATIO (10-20); Calcium,Total 9.4 mg/dL (8.5-10.1); Chloride 102 mmol/L (98-107); Cholesterol 218 mg/dL (200); Creatinine, Serum 0.89 mg/dL (0.70-1.30); EST Glomerular Filtration Rate 100 mL/min (>60); Est Glom Filt Rate - Afr Amer 121 mL/min (>60); Globulin 4.1 g/dL (2.2-4.2); Glucose 310 mg/dL (74-106); High Density Lipoprotein 59 mg/dL; PSA,Total - Annual Screen 0.64 ng/mL (0.00-4.00); Potassium 4.1 mmol/L (3.5-5.1); Protein, Total 8.2 g/dL (6.4-8.2); Sodium Level 138 mmol/L (136-145); Triglycerides 70 mg/dL; Very Low Density Lipoprotein 14 mg/dL (5-40)
== END ==
LOC: BIMLAB 14:17
PROVIDERS: PCP Internal Medicine; Referring Provider Internal Medicine; Visit Provider Internal Medicine
DX: E11.9 Type 2 diabetes mellitus without complications (principal); Z12.5 Encounter for screening for malignant neoplasm of prostate
CPT/HCPCS: 36415; 80053; 80061; 83036; 84153; 85025; G0103

== ENCOUNTER 2020-02-10 17:15 | Emergency (ER) | payer OTHER, SELFPAY ==
[2020-02-05 13:06] VITALS: BMI 29.4
--- NOTE | 2020-02-10 14:46 | RAD_ITS ---
STUDY: X-RAY CHEST REASON FOR EXAM: Male, 44 years old. BACK PAIN, PT STATES HE PULLED MUSCLE IN BACK, HAD MID-BACK PAIN FOR YEARS FROM INJURY. TECHNIQUE: AP portable COMPARISON: June 29 2017 FINDINGS: The lungs are clear and expanded. There is no demonstrated pleural abnormality. Normal size heart. Normal mediastinum and khang. Normal visualized pulmonary arteries. Normal visualized aortic arch and descending thoracic aorta. Normal visualized thoracic spine. Normal visualized ribs, clavicles, and shoulders. There is no demonstrated abnormality of the visualized soft tissue structures of the upper abdomen. RAD/Chest 1 View (Portable) IMPRESSION: Normal x-ray examination of the chest. Electronically Signed: Feroz Chauhan MD at 18:15 EDT , Service support ,
[2020-02-10 17:15] VITALS: BP 156/103; PULSE 118; RESP 15; O2SAT 99
[2020-02-10 17:16] VITALS: BP 156/103; PULSE 123; RESP 18; TEMP 37; O2SAT 98; BMI 31.5
--- NOTE | 2020-02-10 17:29 | ED.RN ---
[employer] ATTEND[employer] CALLED. NO ANSWER. VOICEMAIL FULL. [id number]
[2020-02-10] MEDS: Ketorolac 15 MG/ML Vial IV (17:38)
--- NOTE | 2020-02-10 17:39 | ED.DCSUM_ITS ---
History of Present Illness Chief Complaint: Back Informant: Patient Onset: Today Context: Sudden Onset Timing: Continuous Current Severity: Moderate Maximum Severity: Severe Narrative: Patient is a 44-year-old male history of urs-jlowbaz-hbqvwtiho diabetes that presents to the emergency department with thoracic back injury. Patient was restraining someone. He states that he felt something pull in his upper back. Since then, he is a burning around his posterior chest. He states he cannot find a position of comfort. He denies chest pain. He denies any weakness or numbness. The pain does not radiate. He is otherwise been in his normal state of health. Prior similar symptoms: Yes Recent Illness/Hospitalization: No Past Medical History - Allergies and Home Meds Allergies/Adverse Reactions: Allergies No Known Allergies Allergy (Verified 02/10/20 17:16) Primary Care Physician: ELADIO HENDRICKS [GROUP OF PHYSICIANS] - Prior records reviewed: Yes Past Medical History: - - Diabetes Surgical History: noncontributory Smoking Status: Former smoker - Family History Paternal Family History: Family History (Last Updated 02/05/20 @ 13:02 by Geetha Montenegro) Grandfather Diabetes Grandmother Diabetes Cancer Father Diabetes Mother Diabetes Family History: Reports: - - His father does not have cardiac history but his uncles have. No family history of coronary artery disease in first-degree family Review of Systems General: Denies: Chills, Fever, Sweats Eyes: Denies: Visual changes - bilaterally, Diplopia ENT: Denies: Rhinorrhea, Sore throat Cardiovascular: Denies: Chest pain, Palpitations Respiratory: Denies: Dyspnea, Cough, Dyspnea on exertion Gastrointestinal: Denies: Abdominal pain, Nausea, Vomiting, Diarrhea, Melena, H ematochezia Genitourinary: Denies: Dysuria, Hematuria, Frequency Musculoskeletal: Reports: Myalgias, Back pain. Denies: Extremity Pain Skin: Denies: Rash, Wounds Neurological: Denies: Headache, Weakness, Numbness Physical Exam Vital Signs/Narrative: Vital Signs Temp Pulse Resp BP Pulse Ox 02/10/20 17:16 98.6 F 123 H 18 156/103 H 98 02/10/20 17:15 118 H 15 156/103 H 99 Inital Vital Signs reviewed: Yes General: Well nourished, Well developed, No Acute Distress Head: Normocephalic, Atraumatic Eyes: Perrl, EOMI ENT: Moist mucous membranes, No rhinorrhea Neck: Supple, Nontender Cardiovascular: Regular rate, Regular rhythm, No murmurs Respiratory: No distress, CTA bilaterally, Chest nontender Abdomen: Soft, Nontender, Nondistended, Normal bowel sounds Back: Normal Inspection, - - Tender in the upper right thoracic musculature. No step-off or deformity. Extremities: Nontender, No edema Skin: Normal color, No rash Neurological: Alert, Oriented x3, Cranial nerves II-XII grossly intact, Normal Strength, Normal Sensation Psychological: Normal affect, Normal Mood Diagnostic/Tx/Re-eval Clinical Impression(s) from Imaging Studies Chest X-Ray 02/10/20 14:46 IMPRESSION: Normal x-ray examination of the chest. Electronically Signed: Feroz Chauhan MD at 18:15 EDT , Service support , - Medical Decision Making Patient presents with thoracic muscle injury. He has no midline tenderness. He is normal pulses in the upper extremity. He has no red flag symptoms. Plain films were obtained of the chest to rule out occult rib fracture or pneumothorax. These were negative. Patient was given Toradol and analgesics with improvement. As this was a work-related injury, he will follow-up with isa[facility]. He will be given a short course of antispasmodics and analgesics. He is comfortable with this plan of care. Impression 1. Acute right thoracic muscle strain ED Disposition - Plan for ED Patient: Instructions: ED Sprain Thoracic Spine Prescriptions: cycloBENZAPRine HCl [Flexeril] 10 mg PO TID PRN #20 tab PRN Reason: Muscle Spasm Prescription Printed Hydrocodone Bitart/Apap 5-325 [[place] 5MG-325MG] 1 tab PO Q6H PRN PRN 3 Days #10 tab PRN Reason: Pain Prescription Printed Referrals: ELADIO HENDRICKS [GROUP OF PHYSICIANS] -
--- NOTE | 2020-02-10 17:51 | ED.RN ---
JOSHUA TAFOYA CALLED. REQUIRED UA DRUG SCREEN. MEDS REFUSED DUE TO TEST. Rui PECK RN [id number]
[2020-02-10] MEDS: LORazepam 2 MG/ML Syringe 1 MG IV (20:19)
[2020-02-10] MEDS: Morphine 4 MG/ML Syringe IV (20:19)
[2020-02-10 20:30] VITALS: BP 146/97; PULSE 94; RESP 16; O2SAT 97
--- NOTE | 2020-02-10 21:32 | ED.RN ---
X1 ASSIST TO WHEELCHAIR AND INTO CAR.
== END 2020-02-10 20:50 | disposition home or self-care (01) ==
LOC: ED 17:37
PROVIDERS: Emergency Provider Emergency Medicine; PCP Internal Medicine
DX: S29.012A Strain of muscle and tendon of back wall of thorax, initial encounter (principal); X50.1XXA Overexertion from prolonged static or awkward postures, initial encounter; Y93.9 Activity, unspecified; Y92.9 Unspecified place or not applicable; E11.9 Type 2 diabetes mellitus without complications; Z79.84 Long term (current) use of oral hypoglycemic drugs; Z87.891 Personal history of nicotine dependence
CPT/HCPCS: 71045; 96374; 96375; 99285; A4216

== ENCOUNTER 2020-11-14 21:52 | Emergency (ER) | payer OTHER, SELFPAY ==
[2020-09-16 11:27] VITALS: BMI 26.6
[2020-11-14 21:53] VITALS: BP 158/103; PULSE 110; RESP 18; TEMP 36.8; O2SAT 98; BMI 27.9
--- NOTE | 2020-11-14 22:07 | EDS_ITS ---
HPI History of Present Illness Chief Complaint: Upper Extremity Injury Informant: patient Onset/Context/Timing Onset: Today Current Severity: Moderate Maximum Severity: Moderate Narrative Narrative: Patient presents today with an left elbow injury. He is at work. He states that he fell try to catch himself. He states he felt like something pop in his elbow. Since then, has diminished range of motion secondary to pain. Is otherwise been in his normal state of health. He denies strike his head. He denies loss of consciousness. He denies other injury. [facility] Medical History Depression Diabetes PTSD (post-traumatic stress disorder) Home Medications sitagliptin 50 mg tablet 50 mg PO DAILY #30 tab 06/10/20 [Rx Last Taken Unknown] metformin 500 mg tablet 500 mg PO BID #60 tab 06/17/20 [Rx Last Taken Unknown] bupropion HCl 150 mg tablet,12 hr sustained-release 150 mg PO DAILY #30 ea 08/20/20 [Rx Last Taken Unknown] Allergy/AdvReac Type Severity Reaction Status Date / Time No Known Allergies Allergy Verified 11/14/20 21:56 Family History Grandfather Diabetes Grandmother Diabetes Cancer Father Diabetes Mother Diabetes Social History Smoking Status: Former smoker quit date: 05/28/17 Tobacco: How many years used: 25 alcohol intake: never substance use type: does not use ROS ROS ED Constitutional Constitutional ED: Denies chills or fever(s) Eyes Eyes: Denies blurry vision or change in vision ENT ENT ED: Denies ear pain or sore throat Cardiovascular Cardiovascular: Denies chest pain or palpitations Respiratory/Chest Respiratory/Chest: Denies cough, dyspnea or dyspnea on exertion Gastrointestinal Gastrointestinal: Denies abdominal pain, nausea or vomiting Genitourinary Genitourinary ED: Denies dysuria or urinary frequency Musculoskeletal Musculoskeletal: Denies arthralgias or myalgias Integumentary Denies rash Neurologic Neurologic: Denies headache(s) or paresthesias Psychiatric Psychiatric: Denies anxiety or depression Endocrine Endocrinology: Denies polydipsia or polyuria Allergic/Immunologic Allergic/Immunologic ED: Denies urticaria EXAM Physical Exam Const Vital Signs: 11/14/20 21:53 Temperature 98.3 F Temperature Source Oral Pulse Rate 110 H Respiratory Rate 18 Blood Pressure 158/103 H Blood Pressure Mean 121 Pulse Ox 98 Oxygen Delivery Method Room Air Positive well nourished and well developed General Appearance ED: well developed HEENT Reports normocephalic, head/scalp atraumatic and moist mucous membranes Eyes PERRL and EOMs intact bilaterally Neck no lymphadenopathy and supple General: Negative for tenderness Chest Wall inspection of chest normal Resp normal respiratory effort and clear to auscultation bilaterally Cardio regular rate, regular rhythm and no murmurs GI normal to inspection, nondistended, normoactive bowel sounds Palpation: Negative for tender, guarding or rebound tenderness present Back/Spine no CVA tenderness Cervical Spine: Negative for cervical spine tenderness Thoracic Spine / Upper Back: Negative for thoracic spinal tenderness Extremity normal to inspection Extremity Narrative: Diminished extension against opposition due to pain in the elbow. No disruption of the triceps. No disruption of the biceps. Skin is intact. No pain with pronation or supination. General Extremety ED: Negative for tenderness Neuro oriented x3 and CN's II-XII intact bilaterally Neuro Narrative: No focal deficits appreciated. Sensorium / Orientation: alert Psych mental status grossly normal Skin no rashes or lesions noted, no wounds and skin turgor normal MDM MDM MDM Narrative Medical decision making narrative: Patient presents with left elbow injury. There is no gross laxity of the joint. He does have some pain with extreme extension. I did obtain plain films. These reviewed by both myself and the radiologist. There is no evidence of fracture dislocation. Patient placed in an Colt wrap. He will continue ice and elevation. He will follow-up with [facility]. He will be discharged home. Impression Left elbow sprain Discharge Plan Triage Chief Complaint: Upper Extremity Injury ED Provider: Mickey Mota Dx/Rx/DC Orders Instructions: ED Sprain, Elbow Prescriptions: No Action Januvia 50 mg tablet 50 mg PO DAILY Qty: 30 RF: 1 metformin 500 mg tablet 500 mg PO BID Qty: 60 RF: 5 bupropion HCl [Wellbutrin SR] 150 mg tablet sustained-release 12 hr 150 mg PO DAILY Qty: 30 RF: 2 Primary Care Provider: Ivy George Referrals: [facility] [GROUP OF PHYSICIANS] - 1 Day for another exam Ivy George MD [Primary Care Provider] -
--- NOTE | 2020-11-14 22:10 | RAD_ITS ---
INDICATION: injury EXAMINATION/TECHNIQUE: X-RAY - LEFT XR Elbow Min 3 Views COMPARISON: None. FINDINGS: No acute fracture or malalignment. No blastic or lytic lesions. No degenerative changes are seen. The soft tissues are unremarkable. RAD/Elbow min 3 Views IMPRESSION: No acute radiographic abnormalities. Electronically Signed: Marcus Mendez MD at 22:48 EDT Tel , Service support ,
[2020-11-14] MEDS: Ibuprofen 600 MG Tablet PO (22:27)
== END 2020-11-14 23:02 | disposition home or self-care (01) ==
PROVIDERS: Emergency Provider Emergency Medicine; PCP Internal Medicine
DX: S53.402A Unspecified sprain of left elbow, initial encounter (principal); E11.9 Type 2 diabetes mellitus without complications; F32.9 Major depressive disorder, single episode, unspecified; F43.10 Post-traumatic stress disorder, unspecified; Z79.84 Long term (current) use of oral hypoglycemic drugs; Z79.899 Other long term (current) drug therapy; Z87.891 Personal history of nicotine dependence
CPT/HCPCS: 73080; 99283

== ENCOUNTER 2021-02-15 15:02 | Emergency (ER) | payer OTHER, SELFPAY ==
[2021-02-15 15:02] VITALS: BP 125/84; PULSE 126; RESP 26; TEMP 36.7; O2SAT 98; BMI 27.8
--- NOTE | 2021-02-15 15:12 | EKG12_ITS ---
Test Reason : CP Blood Pressure : / mmHG Vent. Rate : 111 BPM Atrial Rate : 111 BPM P-R Int : 130 ms QRS Dur : 090 ms QT Int : 352 ms P-R-T Axes : 028 -02 046 degrees QTc Int : 478 ms Sinus tachycardia Nonspecific T wave abnormality Abnormal ECG Confirmed by KERA DESHPANDE, MATT ([id number]), city editor NIKOLE JEFFERSON ([id number]) on 02/16/2021 10:56:31 AM Referred By: SHANON Confirmed By:MATT COTE MD
[2021-02-15 15:16] VITALS: O2SAT 99
--- NOTE | 2021-02-15 15:21 | CT_ITS ---
STUDY: CT BRAIN WITHOUT CONTRAST REASON FOR EXAM: Male, 45 years old. headache RADIATION DOSAGE (If Supplied By Facility): CTDIvol = ( 44.99 ) mGy, DLP = ( 846.73 ) mGycm TECHNIQUE: Transaxial CT imaging of the brain was performed without administration of intravenous contrast material. Individualized dose optimization techniques were used for this CT. COMPARISON: CT head 12/29/2017 FINDINGS: Normal soft tissue structures. Normal calvarium. Normal size ventricles and extra-axial spaces for the patient''s age. Normal white matter tracts of the cerebral hemispheres. Normal basal ganglia and thalami. Normal brainstem. Normal cerebellum. There is no intracranial hemorrhage. There are no findings of an acute ischemic infarction. Normal visualized paranasal sinuses. CT/Brain/Head without Contrast IMPRESSION: Normal unenhanced CT scan of the brain. Electronically Signed: Mckayla Sewell MD at 17:00 EDT Tel , Service support ,
--- NOTE | 2021-02-15 15:22 | EDS_ITS ---
HPI History of Present Illness Chief Complaint: Chest Pain Narrative Narrative: 45-year-old male with history of diabetes presenting with chest pain and headache. Patient states he was in therapy when he started to have a headache. He asked staff to help him to the hallway and appeared to have had a syncopal event. He is not sure how long he was unconscious. He is unsure if he hit his head. He states that he now has chest pain which is retrosternal. It did not radiate. He states it feels like someone stepping on me. Prior to this he was healthy. He states he has no history of ND. He states he has no history of DVT/PE and have no risk factors. He was given nitroglycerin and aspirin prior to arrival which he states brought my blood pressure down his blood sugar was 190 per EMS. Patient still has a headache. [facility] Medical History Depression Diabetes PTSD (post-traumatic stress disorder) Home Medications bupropion HCl 150 mg tablet,12 hr sustained-release 150 mg PO DAILY #30 ea 11/23/20 [Rx Last Taken Unknown] metformin 500 mg tablet 500 mg PO BID #120 tab 01/06/21 [Rx Last Taken Unknown] sitagliptin 50 mg tablet 50 mg PO DAILY #90 tab 01/06/21 [Rx Last Taken Unknown] Allergy/AdvReac Type Severity Reaction Status Date / Time No Known Allergies Allergy Verified 02/15/21 15:07 Family History Grandfather Diabetes Grandmother Diabetes Cancer Father Diabetes Mother Diabetes Social History Smoking Status: Former smoker quit date: 05/28/17 Tobacco: How many years used: 25 alcohol intake: never substance use type: does not use ROS ROS ED Constitutional Constitutional ED: Denies chills, fever(s) or sweats Eyes Eyes: Denies blurry vision or change in vision ENT ENT ED: Denies ear pain, rhinorrhea or sore throat Cardiovascular Cardiovascular: Reports chest pain, palpitations and racing heartbeat Respiratory/Chest Respiratory/Chest: Denies cough, dyspnea or sputum Gastrointestinal Gastrointestinal: Denies abdominal pain, constipation, diarrhea or vomiting Genitourinary Genitourinary ED: Denies dysuria, hematuria or urinary frequency Musculoskeletal Musculoskeletal: Denies arthralgias, myalgias or neck pain Integumentary Denies abscess, Abrasions or rash Neurologic Neurologic: Reports headache(s); Denies paresthesias or weakness Psychiatric Psychiatric: Denies anxiety, depression, suicidal ideation or suicidal thoughts Endocrine Endocrinology: Denies polydipsia or polyuria EXAM Physical Exam Const Vital Signs: 02/15/21 15:02 02/15/21 15:16 02/15/21 15:17 Temperature 98.1 F Temperature Source Temporal Pulse Rate 126 H Respiratory Rate 26 H Respiratory Effort Normal Non-Labored Blood Pressure 125/84 H Blood Pressure Mean 97 Pulse Ox 98 99 Oxygen Delivery Method Room Air Room Air 02/15/21 16:02 02/15/21 17:00 02/15/21 18:00 Temperature Temperature Source Pulse Rate 112 H 116 H 85 Respiratory Rate 20 H 27 H 13 Respiratory Effort Blood Pressure 131/75 H 166/96 H 123/75 H Blood Pressure Mean 93 119 91 Pulse Ox 97 96 95 Oxygen Delivery Method Room Air Room Air Room Air 02/15/21 21:32 Temperature Temperature Source Pulse Rate 78 Respiratory Rate 16 Respiratory Effort Blood Pressure 138/74 H Blood Pressure Mean Pulse Ox 98 Oxygen Delivery Method Positive well nourished Constitutional Narrative: Patient diaphoretic and complaining of chest pain General Appearance ED: Negative for pallor HEENT normocephalic and atraumatic Eyes PERRL and EOMs intact bilaterally Chest Wall inspection of chest normal and palpation of chest normal Resp normal respiratory effort Effort and Inspection: respiratory distress Cardio regular rhythm Rate: tachycardic GI normal to inspection, nondistended, normoactive bowel sounds Extremity normal to inspection General Extremety ED: Negative for edema or tenderness General Extremity: Negative for edema Neuro oriented x3 and CN's II-XII intact bilaterally Sensorium / Orientation: awake and alert Psych Attitude: agitated Mood & Affect: anxious Skin no rashes or lesions noted General Skin Exam: Negative for jaundice or pallor Heart Score History: Moderately Suspicious ECG: Normal Age: </= 45 years Risk Factors: 1 or 2 Risk Factors Troponin: </= Normal Limit Score: 2 MDM MDM MDM Narrative Medical decision making narrative: Patient presenting with chest pain and headache. He is diaphoretic on my initial examination. He states that he feels like his blood sugar is dropping and he states he does not tolerate blood sugars less than 80 usually. His blood sugar was checked in the squad on the way to the ER and it was 190. For this reason after his EKG did not show any abnormality he was sent over to CT for CT brain as he had a headache prior to the episode of syncope. The CT was negative for acute findings. 2 blood sugars at 44 and 52. He was initially given orange juice with the first 1. After his blood sugar dropped again he was given a meal. He has been monitored in the ED for hours and his blood sugar is now stabilized and he feels much better. His CBC and BMP are unremarkable other than a potassium of 3.3 and his glucose of 150 on this. Urinalysis and tox are negative. D-dimer is negative. Chest x- ray on my interpretation shows no acute cardiopulmonary process and the radiologist does agree. EKG is sinus rhythm with a ventricular rate of 111 bpm without sign of ischemic change on my interpretation. Patient has 2 - t roponins. His blood sugar has now stabilized. He feels well enough to go home. I counseled him to call his primary care physician tomorrow to determine if they want to change his diabetic medications. He acknowledged understanding. Impression: 1. Headache 2. Hypoglycemia 3. Chest pain noncardiac Lab Data Labs: Laboratory Results - last 24 hr 02/15/21 02/15/21 02/15/21 14:40 14:40 15:35 WBC 9.3 RBC 5.84 Hgb 16.9 H Hct 48.3 MCV 82.7 MCH 28.9 MCHC 35.0 RDW Std Deviation 34.4 L RDW Coeff of Vicky 11.5 L Plt Count 354 MPV 9.9 Immature Gran % (Auto) 0.600 Neut % (Auto) 60.6 Lymph % (Auto) 33.9 [place] % (Auto) 4.1 Eos % (Auto) 0.4 Baso % (Auto) 0.4 Absolute Neuts (auto) 5.7 Absolute Lymphs (auto) 3.16 Nucleated RBC % 0 D-Dimer Quant (PE/DVT) 0.35 Sodium 137 Potassium 3.3 L Chloride 107 Carbon Dioxide 21.0 Anion Gap 9 BUN 14 Creatinine 0.98 Estim Creat Clear Calc 97.19 Est GFR (MDRD) Af Amer 107 Est GFR (MDRD) Non-Af 89 BUN/Creatinine Ratio 14.3 Glucose 150 H Calcium 9.5 Troponin I High Sens 6 Urine Color Urine Clarity Urine pH Ur Specific [place] Urine Protein Urine Glucose (UA) Urine Ketones Urine Occult Blood Urine Nitrite Urine Bilirubin Urine Urobilinogen Ur Leukocyte Esterase Urine RBC Urine WBC Ur Squamous Epith Cells Urine Bacteria Urine Mucus Urine Opiates Screen Urine Methadone Screen Ur Barbiturates Screen Ur Phencyclidine Scrn Ur Amphetamines Screen U Methamphetamin-MDMA U Benzodiazepines Scrn Urine Cocaine Screen U Cannabinoids Screen Ur Drug Screen Comment POC Glucose 02/15/21 02/15/21 02/15/21 15:35 16:13 16:40 WBC RBC Hgb Hct MCV MCH MCHC RDW Std Deviation RDW Coeff of Vicky Plt Count MPV Immature Gran % (Auto) Neut % (Auto) Lymph % (Auto) [place] % (Auto) Eos % (Auto) Baso % (Auto) Absolute Neuts (auto) Absolute Lymphs (auto) Nucleated RBC % D-Dimer Quant (PE/DVT) Sodium Potassium Chloride Carbon Dioxide Anion Gap BUN Creatinine Estim Creat Clear Calc Est GFR (MDRD) Af Amer Est GFR (MDRD) Non-Af BUN/Creatinine Ratio Glucose Calcium Troponin I High Sens 6 Urine Color Urine Clarity Urine pH Ur Specific [place] Urine Protein Urine Glucose (UA) Urine Ketones Urine Occult Blood Urine Nitrite Urine Bilirubin Urine Urobilinogen Ur Leukocyte Esterase Urine RBC Urine WBC Ur Squamous Epith Cells Urine Bacteria Urine Mucus Urine Opiates Screen Urine Methadone Screen Ur Barbiturates Screen Ur Phencyclidine Scrn Ur Amphetamines Screen U Methamphetamin-MDMA U Benzodiazepines Scrn Urine Cocaine Screen U Cannabinoids Screen Ur Drug Screen Comment POC Glucose 97 126 H 02/15/21 02/15/21 02/15/21 17:17 17:48 18:22 WBC RBC Hgb Hct MCV MCH MCHC RDW Std Deviation RDW Coeff of Vicky Plt Count MPV Immature Gran % (Auto) Neut % (Auto) Lymph % (Auto) [place] % (Auto) Eos % (Auto) Baso % (Auto) Absolute Neuts (auto) Absolute Lymphs (auto) Nucleated RBC % D-Dimer Quant (PE/DVT) Sodium Potassium Chloride Carbon Dioxide Anion Gap BUN Creatinine Estim Creat Clear Calc Est GFR (MDRD) Af Amer Est GFR (MDRD) Non-Af BUN/Creatinine Ratio Glucose Calcium Troponin I High Sens Urine Color Urine Clarity Urine pH Ur Specific [place] Urine Protein Urine Glucose (UA) Urine Ketones Urine Occult Blood Urine Nitrite Urine Bilirubin Urine Urobilinogen Ur Leukocyte Esterase Urine RBC Urine WBC Ur Squamous Epith Cells Urine Bacteria Urine Mucus Urine Opiates Screen Urine Methadone Screen Ur Barbiturates Screen Ur Phencyclidine Scrn Ur Amphetamines Screen U Methamphetamin-MDMA U Benzodiazepines Scrn Urine Cocaine Screen U Cannabinoids Screen Ur Drug Screen Comment POC Glucose 44 L* 52 L 251 H 02/15/21 02/15/21 02/15/21 18:48 18:48 19:17 WBC RBC Hgb Hct MCV MCH MCHC RDW Std Deviation RDW Coeff of Vicky Plt Count MPV Immature Gran % (Auto) Neut % (Auto) Lymph % (Auto) [place] % (Auto) Eos % (Auto) Baso % (Auto) Absolute Neuts (auto) Absolute Lymphs (auto) Nucleated RBC % D-Dimer Quant (PE/DVT) Sodium Potassium Chloride Carbon Dioxide Anion Gap BUN Creatinine Estim Creat Clear Calc Est GFR (MDRD) Af Amer Est GFR (MDRD) Non-Af BUN/Creatinine Ratio Glucose Calcium Troponin I High Sens Urine Color Yellow Urine Clarity Clear Urine pH 5.0 Ur Specific Edmond 1.020 Urine Protein 30 H Urine Glucose (UA) 1000 H Urine Ketones 5 H Urine Occult Blood 10 H Urine Nitrite Negative Urine Bilirubin Negative Urine Urobilinogen Normal Ur Leukocyte Esterase Negative Urine RBC 0-5 SEEN Urine WBC 0 SEEN Ur Squamous Epith Cells 0-5 SEEN Urine Bacteria 0 SEEN Urine Mucus RARE Urine Opiates Screen NEGATIVE Urine Methadone Screen NEGATIVE Ur Barbiturates Screen NEGATIVE Ur Phencyclidine Scrn NEGATIVE Ur Amphetamines Screen NEGATIVE U Methamphetamin-MDMA NEGATIVE U Benzodiazepines Scrn NEGATIVE Urine Cocaine Screen NEGATIVE U Cannabinoids Screen NEGATIVE Ur Drug Screen Comment POC Glucose 232 H Radiography Diagnostic Testing: Radiology Impression Brain CT 02/15/21 15:21 IMPRESSION: Normal unenhanced CT scan of the brain. Electronically Signed: Mckayla Sewell MD at 17:00 EDT Tel , Service support , Chest X-Ray 02/15/21 15:30 IMPRESSION: Normal x-ray examination of the chest. Electronically Signed: Mckayla Sewell MD at 16:57 EDT Tel , Service support , Discharge Plan Triage Chief Complaint: Chest Pain ED Provider: Gideon Mota Dx/Rx/DC Orders Instructions: Hypoglycemia (Low Blood Sugar), Understanding Headache Pain, ED Chest Pain, Uncertain Cause Prescriptions: No Action metformin 500 mg tablet 500 mg PO BID Qty: 120 RF: 1 Januvia 50 mg tablet 50 mg PO DAILY Qty: 90 RF: 1 bupropion HCl [Wellbutrin SR] 150 mg tablet sustained-release 12 hr 150 mg PO DAILY Qty: 30 RF: 2 Primary Care Provider: Ivy George Referrals: Ivy George MD [Primary Care Provider] - Disposition Disposition: Home, Self Care Discharge Date/Time: 02/15/21 21:32
[2021-02-15 15:23] LABS: Absolute Lymphocyte Count 3.16 X10^3/uL (0.83-4.51); Absolute Neutrophil Count 5.7 X10^3/uL (2.0-7.7); Basophil# 0.04 X10^3/uL; Basophil% 0.4 % (0-1); Eosinophil# 0.04 X10^3/uL; Eosinophils% 0.4 % (0-5); Hematocrit 48.3 % (40-54); Hemoglobin 16.9 g/dL (13.0-16.5); Lymphocyte # 3.16 X10^3/ul (0.83-4.51); Lymphocyte % 33.9 % (19-41); Mean Corpuscular Hgb 28.9 pg (27.0-32.0); Mean Corpuscular Volume 82.7 fL (80-94); Mean Platelet Vol. 9.9 fl (6.2-12.0); Monocyte# 0.38 X10^3/uL; Monocyte% 4.1 % (0-10); NRBC Flagged by Analyzer 0 % (0-5); Neutrophil # 5.65 X10^3/uL (2.7-7.7); Neutrophil % 60.6 % (47-70); Platelet Count 354 K/mm3 (150-450); RBC Distribution Width CV 11.5 % (11.6-14.6); RBC Distribution Width SD 34.4 fl (35.1-43.9); Red Blood Count 5.84 M/mm3 (4.6-6.2); White Blood Count 9.3 K/mm3 (4.4-11.0)
--- NOTE | 2021-02-15 15:30 | RAD_ITS ---
STUDY: X-RAY CHEST REASON FOR EXAM: Male, 45 years old. Chest pain TECHNIQUE: Single AP portable view of the chest. COMPARISON: 02/10/2020 FINDINGS: The lungs are clear and expanded. There is no demonstrated pleural abnormality. Normal size heart. Normal mediastinum and khang. Normal visualized pulmonary arteries. Normal visualized aortic arch and descending thoracic aorta. Normal visualized thoracic spine. Normal visualized ribs, clavicles, and shoulders. There is no demonstrated abnormality of the visualized soft tissue structures of the upper abdomen. RAD/Chest 1 View (Portable) IMPRESSION: Normal x-ray examination of the chest. Electronically Signed: Mckayla Sewell MD at 16:57 EDT Tel , Service support ,
[2021-02-15 15:36] LABS: Anion Gap 9 (5-15); BUN 14 mg/dL (7-18); BUN/Creat Ratio 14.3 RATIO (10-20); Calcium,Total 9.5 mg/dL (8.5-10.1); Chloride 107 mmol/L (98-107); Creatinine, Serum 0.98 mg/dL (0.70-1.30); EST Glomerular Filtration Rate 89 mL/min (>60); Est Glom Filt Rate - Afr Amer 107 mL/min (>60); Estimated Creatinine Clearance 97.19 ml/min; Glucose 150 mg/dL (74-106); Potassium 3.3 mmol/L (3.5-5.1); Sodium Level 137 mmol/L (136-145); Troponin-I HS 6 pg/mL (3.0-78.0)
[2021-02-15 15:42] LABS: Bedside Glucose 97 mg/dL (70-110)
[2021-02-15 16:02] VITALS: BP 131/75; PULSE 112; RESP 20; O2SAT 97
[2021-02-15 16:09] LABS: D-Dimer Quantitative (DVT/PE) 0.35 FEU/ug/m (0.27-0.49)
[2021-02-15 16:16] LABS: Bedside Glucose 126 mg/dL (70-110)
[2021-02-15 17:00] VITALS: BP 166/96; PULSE 116; RESP 27; O2SAT 96
[2021-02-15 17:03] LABS: Troponin-I HS 6 pg/mL (3.0-78.0)
[2021-02-15 17:51] LABS: Bedside Glucose 44 mg/dL (70-110)
[2021-02-15 17:51] LABS: Bedside Glucose 52 mg/dL (70-110)
[2021-02-15 18:00] VITALS: BP 123/75; PULSE 85; RESP 13; O2SAT 95
--- NOTE | 2021-02-15 18:04 | ED.RN ---
PT WITH EPISODES OF BLOOD GLUCOSE DROPPING, SWEATING PROFUSELY, DIZZY, WEAK. PT HAS EATEN 2 SANDWICHES, BANANA, 2 YOGURTS, 6 JUICES, 3 FULL SIZE SPRITES. MD AWARE, URINE DRUG SCREEN ORDERED. PT AMBULATED TO BATHROOM, REFUSES TO GIVE URINE SAMPLE AT BEDSIDE. PT STATES HE IS UNABLE TO URINATE. BLADDER SCANNED FOR 200 ML. PT ENCOURAGED TO URINATE, ADAMANTLY STATES HE WILL NOT BE ABLE TO GIVE SAMPLE.
[2021-02-15] MEDS: Dextrose 50%-Water 25 GM/50 ML DISP.SYRIN IV (18:09)
[2021-02-15 18:26] LABS: Bedside Glucose 251 mg/dL (70-110)
[2021-02-15 18:53] LABS: Bacteria 0 SEEN /hpf (None Seen); White Blood Cells 0 SEEN /hpf (0-5)
[2021-02-15 19:03] LABS: Color, Urine Yellow (Yellow); Glucose, Dipstick 1000 mg/dl (Normal); Ketone-Dipstick 5 mg/dl (Negative); Leukocyte Esterase-Dipstick Negative /ul (Negative); Nitrite-Dipstick Negative (Negative); Occult Blood-Urine 10 /ul (Negative); Protein-Dipstick 30 mg/dl (Negative); Urine Bilirubin Dipstick Negative (Negative); Urine Clarity Clear (Clear); Urine Urobilinogen Normal (Normal)
[2021-02-15 19:10] LABS: Mucous, Urine RARE /hpf (<or=2+); Red Blood Cells-Urine 0-5 SEEN /hpf (0-5); Squamous Epithelial Cells - UA 0-5 SEEN /hpf (0-5)
[2021-02-15 19:12] LABS: Amphetamine Urine VISTA NEGATIVE (<1000 ng/mL); Barbiturate Urine VISTA NEGATIVE (< 200 ng/mL); Benzodiazepine Urine VISTA NEGATIVE (< 200 ng/mL); Cocaine Urine VISTA NEGATIVE (< 300 ng/mL); Ecstacy Urine VISTA NEGATIVE (< 500 ng/mL); Methadone Urine VISTA NEGATIVE (< 300 ng/mL); PCP Urine VISTA NEGATIVE (< 25 ng/mL); THC Urine VISTA NEGATIVE (< 50 ng/mL); Vista UDS pH Range 5
[2021-02-15 19:22] LABS: Bedside Glucose 232 mg/dL (70-110)
[2021-02-15 21:32] VITALS: BP 138/74; PULSE 78; RESP 16; O2SAT 98
== END 2021-02-15 21:32 | disposition home or self-care (01) ==
PROVIDERS: Emergency Provider Student in an Organized Health Care Education/Training Program; PCP Internal Medicine
DX: R07.89 Other chest pain (principal); E11.649 Type 2 diabetes mellitus with hypoglycemia without coma; R51.9 Headache, unspecified; F32.9 Major depressive disorder, single episode, unspecified; F43.10 Post-traumatic stress disorder, unspecified; Z79.84 Long term (current) use of oral hypoglycemic drugs; Z79.899 Other long term (current) drug therapy; Z87.891 Personal history of nicotine dependence
CPT/HCPCS: 70450; 71045; 80048; 80307; 81001; 82962; 84484; 85025; 85379; 93005; 96374; 99285; J7040; A4216

== ENCOUNTER → 2021-05-18 | Outpatient (CLI) | payer OTHER, SELFPAY | END | disposition home or self-care (01) | LOC: LABSPEC 11:09 | PROVIDERS: PCP Internal Medicine; Referring Provider Physician Assistant; Visit Provider Physician Assistant | DX: U07.1 COVID-19 (principal) | CPT/HCPCS: 87635; U0005; U0003 ==

== ENCOUNTER 2021-05-24 09:06 | Emergency (ER) | payer OTHER, SELFPAY ==
[2021-05-24 09:07] VITALS: BP 150/98; PULSE 110; RESP 18; TEMP 36.2; O2SAT 97; BMI 25.1
--- NOTE | 2021-05-24 09:33 | EKG12_ITS ---
Test Reason : NAUSEA Blood Pressure : / mmHG Vent. Rate : 112 BPM Atrial Rate : 112 BPM P-R Int : 138 ms QRS Dur : 086 ms QT Int : 328 ms P-R-T Axes : 018 -07 038 degrees QTc Int : 447 ms Sinus tachycardia Nonspecific T wave abnormality Abnormal ECG Confirmed by KERA DESHPANDE, MATT ([id number]), photography editor GLADYS ROCHE ([id number]) on 05/26/2021 9:52:13 AM Referred By: HODAN Confirmed By:MATT COTE MD
--- NOTE | 2021-05-24 09:33 | RAD_ITS ---
STUDY: X-RAY CHEST REASON FOR EXAM: Male, 45 years old. cough TECHNIQUE: Single AP portable view of the chest. COMPARISON: 02/15/2021 FINDINGS: Patchy alveolar opacities in the lung bases consistent with bibasilar pneumonia. There is no demonstrated pleural abnormality. Normal size heart. Normal mediastinum and khang. Normal visualized pulmonary arteries. Normal visualized aortic arch and descending thoracic aorta. Normal visualized thoracic spine. Normal visualized ribs, clavicles, and shoulders. There is no demonstrated abnormality of the visualized soft tissue structures of the upper abdomen. RAD/Chest 1 View (Portable) IMPRESSION: Bibasilar pneumonia. Electronically Signed: Raul Shannon MD at 9:53 EST Tel , Service support ,
--- NOTE | 2021-05-24 09:35 | EX.ED.DYSGE1 ---
HPI History of Present Illness Chief Complaint: Nausea/Vomiting Informant: patient and spouse/S.O. Narrative Narrative: Patient presents with a primary complaint of nausea vomiting. Patient had a bronchitis type illness back in [facility]. He was treated with Tessalon Perles and azithromycin. Symptoms got better although he still had a slight dry cough. He then started getting ill again. He got congestion muscle aches and an increase in the cough. The cough has stayed dry. This started about 16 May approximately. Therefore he is on about 8 days of symptoms. He had a positive Covid test on 18 May. He had prior had negative testing. He has not had immunizations. He has no sputum or hemoptysis. He is not having chest pain. Although he has nausea vomiting and some mild diarrhea, he is not having abdominal pain. His biggest issue is that he cannot eat or drink anything without vomiting. Nothing really makes his symptoms better or worse. However, he does not have any meds for vomiting at home. He is a diabetic. [facility] Medical History Abnormal weight loss Acute bronchitis, unspecified Depression Diabetes Encounter for screening for COVID-19 PTSD (post-traumatic stress disorder) Home Medications metformin 500 mg tablet 500 mg PO BID #120 tab 01/06/21 [Rx Last Taken Unknown] sitagliptin 50 mg tablet 50 mg PO DAILY #90 tab 01/06/21 [Rx Last Taken Unknown] bupropion HCl 150 mg tablet,12 hr sustained-release 150 mg PO DAILY #90 ea 03/14/21 [Rx Last Taken Unknown] azithromycin 250 mg tablet 250 mg PO QDAY #6 tab 04/26/21 [Rx Last Taken Unknown] benzonatate 200 mg capsule 200 mg PO TID PRN #30 cap 04/26/21 [Rx Last Taken Unknown] ondansetron 4 mg PO Q8H PRN #10 tab 05/24/21 [Rx Last Taken Unknown] promethazine 25 mg PO TID PRN #10 tab 05/24/21 [Rx Last Taken Unknown] Allergy/AdvReac Type Severity Reaction Status Date / Time No Known Allergies Allergy Verified 05/24/21 09:09 Family History Grandfather Diabetes Grandmother Diabetes Cancer Father Diabetes Mother Diabetes Other Heart disease Social History Smoking Status: Former smoker quit date: 05/28/17 Tobacco: How many years used: 25 alcohol intake: never substance use type: does not use ROS ROS ED Constitutional Constitutional ED: Reports subjective Eyes Eyes: Denies blurry vision or change in vision ENT ENT ED: Reports rhinorrhea and sore throat; Denies ear pain Cardiovascular Cardiovascular: Denies chest pain Respiratory/Chest Respiratory/Chest: Reports cough; Denies dyspnea, dyspnea on exertion or sputum Gastrointestinal Gastrointestinal: Reports diarrhea, nausea and vomiting; Denies abdominal pain, constipation or melena Genitourinary Genitourinary ED: Reports other Details: Urine has been darker and decreased amount. ; Denies dysuria Musculoskeletal Musculoskeletal: Reports myalgias Integumentary Denies rash Neurologic Neurologic: Denies headache(s) Endocrine Endocrinology: Denies polydipsia or polyuria Allergic/Immunologic Allergic/Immunologic ED: Denies mouth swelling or urticaria EXAM Physical Exam Const Vital Signs: 05/24/21 09:07 05/24/21 11:32 Temperature 97.1 F L Temperature Source Temporal Pulse Rate 110 H 97 Respiratory Rate 18 16 Blood Pressure 150/98 H 139/84 H Blood Pressure Mean 115 102 Pulse Ox 97 98 Oxygen Delivery Method Room Air Room Air Positive well nourished and well developed General Appearance ED: well developed and NAD; Negative for cyanotic, diaphoretic or pallor HEENT Reports dry mucous membranes Mouth ED: Yes dry mucous membranes Mouth: dry mucous membranes Eyes General Eye ED: Negative for pale conjunctiva or scleral icterus Neck no JVD Chest Wall inspection of chest normal Resp normal respiratory effort Resp Narrative: Patient has a few coarse breath sounds bilaterally. No wheezing. Effort and Inspection: Negative for pain with movement Auscultation: rhonchi; Negative for rales or wheezes Cardio regular rhythm Rate: tachycardic GI normal to inspection, nondistended, normoactive bowel sounds and non-tender Palpation: soft Back/Spine no CVA tenderness Extremity normal to inspection General Extremety ED: Negative for edema or tenderness General Extremity: Negative for edema Neuro oriented x3 Sensorium / Orientation: alert Psych mental status grossly normal Skin no rashes or lesions noted and no wounds General Skin Exam: elasticity normal; Negative for jaundice or pallor MDM MDM MDM Narrative Medical decision making narrative: Patient's blood sugar is elevated. But he has had trouble getting his meds in because of the vomiting. He has had them this high before. Creatinine is well preserved. He does have slight elevation of his hemoglobin which could be due to some mild hemoconcentration. Chest x-ray hinted of some basilar changes. This is likely from his Covid. Patient is on day 7 at this time. I will get him set up for monoclonal antibody therapy. He states he is interested in this. He has not vomited since getting Zofran. He is thirsty at this time. He wants to drink some fluid which we will check. I will get him home with Phenergan and Zofran so he has some options. We discussed reasons to return. Lab Data Attestation: I reviewed the patient's lab results. Labs: Laboratory Results - last 24 hr 05/24/21 05/24/21 10:20 10:20 WBC 8.4 RBC 5.97 Hgb 16.9 H Hct 49.1 MCV 82.2 MCH 28.3 MCHC 34.4 RDW Std Deviation 34.9 L RDW Coeff of Vicky 11.6 Plt Count 218 MPV 9.6 Immature Gran % (Auto) 0.500 Neut % (Auto) 80.4 H Lymph % (Auto) 13.0 L Coleman % (Auto) 5.7 Eos % (Auto) 0.0 Baso % (Auto) 0.4 Absolute Neuts (auto) 6.7 Absolute Lymphs (auto) 1.09 Nucleated RBC % 0 Sodium 131 L Potassium 4.1 Chloride 96 L Carbon Dioxide 22.0 Anion Gap 13 BUN 13 Creatinine 1.08 Estim Creat Clear Calc 93.93 Est GFR (MDRD) Af Amer 96 Est GFR (MDRD) Non-Af 79 BUN/Creatinine Ratio 12.0 Glucose 327 H Calcium 8.7 Radiography Diagnostic Testing: Clinical Impression(s) from Imaging Studies Chest X-Ray 05/24/21 09:33 IMPRESSION: Bibasilar pneumonia. Electronically Signed: Raul Shannon MD at 9:53 EST Tel , Service support , EKG Initial EKG: Comments: EKG done for cough and recurrent nausea vomiting with mild tachycardia. EKG read by me shows sinus rhythm with tachycardic rate of 112. No ectopy. No acute ST elevation or depression. He has diffuse nonspecific changes. DE interval, QRS duration and QTc normal. Discharge Plan Triage Chief Complaint: Nausea/Vomiting ED Provider: Damaso Cole Dx/Rx/DC Orders Clinical Impression: Pneumonia due to 2019 novel coronavirus, Nausea & vomiting, Dehydration, Hyperglycemia Instructions: Coronavirus Disease 2019 (COVID-19): Caring for Yourself or Others Prescriptions: New ondansetron 4 mg tablet,disintegrating 4 mg PO Q8H PRN (Reason: nausea and vomiting) Qty: 10 RF: 0 promethazine 25 mg tablet 25 mg PO TID PRN (Reason: nausea and vomiting) Qty: 10 RF: 0 No Action metformin 500 mg tablet 500 mg PO BID Qty: 120 RF: 1 Januvia 50 mg tablet 50 mg PO DAILY Qty: 90 RF: 1 azithromycin 250 mg tablet 250 mg PO QDAY Qty: 6 RF: 0 benzonatate 200 mg capsule 200 mg PO TID PRN (Reason: cough) Qty: 30 RF: 0 bupropion HCl [Wellbutrin SR] 150 mg tablet sustained-release 12 hr 150 mg PO DAILY Qty: 90 RF: 3 Primary Care Provider: Ivy George Referrals: Ivy George MD [Primary Care Provider] - As Needed Disposition Disposition: Home, Self Care
[2021-05-24 10:24] LABS: Absolute Lymphocyte Count 1.09 X10^3/uL (0.83-4.51); Absolute Neutrophil Count 6.7 X10^3/uL (2.0-7.7); Basophil# 0.03 X10^3/uL; Basophil% 0.4 % (0-1); Hematocrit 49.1 % (40-54); Hemoglobin 16.9 g/dL (13.0-16.5); Lymphocyte # 1.09 X10^3/ul (0.83-4.51); Mean Corp Hgb Conc 34.4 g/dL (32-36); Mean Corpuscular Hgb 28.3 pg (27.0-32.0); Mean Corpuscular Volume 82.2 fL (80-94); Mean Platelet Vol. 9.6 fl (6.2-12.0); Monocyte# 0.48 X10^3/uL; Monocyte% 5.7 % (0-10); NRBC Flagged by Analyzer 0 % (0-5); Neutrophil # 6.73 X10^3/uL (2.7-7.7); Neutrophil % 80.4 % (47-70); Platelet Count 218 K/mm3 (150-450); RBC Distribution Width CV 11.6 % (11.6-14.6); RBC Distribution Width SD 34.9 fl (35.1-43.9); Red Blood Count 5.97 M/mm3 (4.6-6.2); White Blood Count 8.4 K/mm3 (4.4-11.0)
[2021-05-24 10:37] LABS: Anion Gap 13 (5-15); BUN 13 mg/dL (7-18); Calcium,Total 8.7 mg/dL (8.5-10.1); Chloride 96 mmol/L (98-107); Creatinine, Serum 1.08 mg/dL (0.70-1.30); EST Glomerular Filtration Rate 79 mL/min (>60); Est Glom Filt Rate - Afr Amer 96 mL/min (>60); Estimated Creatinine Clearance 93.93 ml/min; Glucose 327 mg/dL (74-106); Potassium 4.1 mmol/L (3.5-5.1); Sodium Level 131 mmol/L (136-145)
[2021-05-24] MEDS: Ondansetron 4 MG/2 ML Vial IV (10:52)
[2021-05-24 11:32] VITALS: BP 139/84; PULSE 97; RESP 16; O2SAT 98
[2021-05-24 12:53] VITALS: BP 126/74; PULSE 69; RESP 15; O2SAT 96
== END 2021-05-24 12:54 | disposition home or self-care (01) ==
PROVIDERS: Emergency Provider Emergency Medicine; PCP Internal Medicine
DX: U07.1 COVID-19 (principal); J12.82 Pneumonia due to coronavirus disease 2019; E11.65 Type 2 diabetes mellitus with hyperglycemia; E86.0 Dehydration; F32.A Depression, unspecified; F43.10 Post-traumatic stress disorder, unspecified; Z79.84 Long term (current) use of oral hypoglycemic drugs; Z79.899 Other long term (current) drug therapy; Z87.891 Personal history of nicotine dependence
CPT/HCPCS: 71045; 80048; 85025; 93005; 96374; 99283; A4216; J2405

== ENCOUNTER 2021-05-24 18:12 | Outpatient (CLI) | payer OTHER, SELFPAY ==
[2021-05-24 18:29] VITALS: BP 124/91; PULSE 120; RESP 20; TEMP 36.9; O2SAT 96
[2021-05-24] MEDS: 0.9% Saline Lock 10 ML Syringe IV (18:39)
[2021-05-24 19:11] VITALS: BP 152/98; PULSE 106; RESP 16; TEMP 37.2; O2SAT 97
[2021-05-24 20:03] VITALS: BP 151/97; PULSE 105; RESP 20; TEMP 37.3; O2SAT 99
== END 2021-05-24 20:11 | disposition home or self-care (01) ==
LOC: MS3OUT 18:12 → MS3 18:13
PROVIDERS: PCP Internal Medicine; Referring Provider Emergency Medicine; Visit Provider Emergency Medicine
DX: Z23 Encounter for immunization (principal); U07.1 COVID-19
CPT/HCPCS: J7050; M0245; Q0245; A4216

== ENCOUNTER 2025-02-04 19:14 | Emergency (ER) | payer OTHER, SELFPAY ==
[2025-02-04] VITALS (9 sets, daily range): BP systolic 148–219; BP diastolic 83–133; PULSE 99–121; RESP 9–18; TEMP 36.4–36.8; O2SAT 96–100; BMI 25.0
--- NOTE | 2025-02-04 20:05 | ED.RN ---
PT. CALLED FOR ED ROOM. PT. REQUESTED FOR THE PERSON FOLLOWING HIM TO BE ROOMED FIRST. PT. EDUCATED ON PROCESS OF ED TRIAGE, BUT DECLINED TO BE ROOMED FIRST ONCE AGAIN.
--- NOTE | 2025-02-04 21:13 | EX.ED.DYSGE1 ---
HPI History of Present Illness Chief Complaint: Lower Extremity Injury Narrative Narrative: Chief complaint and HPI: 49-year-old male with past medical history of DM2, PTSD, depression presents for wound check evaluation. Patient states on 01/23 he dropped a folding table onto his left foot. Obtained a abrasion to the lateral foot proximal to the fifth toe. states that the area appeared red a couple days ago and she is concerned for infection. Redness has improved. Patient states he has mild pain in the area. He does have diabetic neuropathy but states that he does have feeling in his feet. 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 He denies any fever, chills, shortness of breath, chest pain, nausea, vomiting. Review of systems: See HPI Medications: As listed on the chart Allergies: As listed on the chart PFSH: Per chart Vital signs: As listed on the chart. Reviewed. Physical exam: Gen: A&O x3, NAD Head: Normocephalic, atraumatic Eyes: No sclera icterus, conjunctiva clear ENT: Moist mucous membranes CV: RRR, no murmurs, no peripheral edema Resp: Lungs CTA BL, no w/r/c Musc: Full ROM, no deformity, patient has a healing callus/scab to the lateral left foot proximal to the fifth digit, no erythema/warmth/ecchymosis/purulence/drainage/crepitus, area not significantly tender to palpation, DP/PT pulses +2 bilaterally, sensation intact, good capillary refill, compartments soft, calcaneus and Achilles nontender, full range of motion, strength +5/5 Skin: Warm, dry Neuro: Alert, oriented, grossly intact, sensation intact Psych: Cooperative, appropriate mood and affect PFS PFS Medical History Abnormal weight loss Acute bronchitis, unspecified Depression Diabetes Encounter for screening for COVID-19 PTSD (post-traumatic stress disorder) Home Medications ?Medication ?Instructions ?Recorded ?Last Taken ?Type metformin 500 mg tablet 500 mg PO BID #180 tabs 07/25/21 Unknown Rx Allergy/AdvReac Type Severity Reaction Status Date / Time No Known Allergies Allergy Verified 02/04/25 19:20 Family History Grandfather Diabetes Grandmother Diabetes Cancer Father Diabetes Mother Diabetes Other Heart disease Social History Smoking Status: Former smoker quit date: 05/28/17 Tobacco: How many years used: 25 alcohol intake: never substance use type: does not use EXAM Physical Exam Const Vital Signs: 02/04/25 19:15 02/04/25 20:24 Temperature 97.6 F L 98.2 F Temperature Source Oral Oral Pulse Rate 120 H 110 H Respiratory Rate 16 16 Blood Pressure 177/117 H 179/119 H Blood Pressure Mean 137 139 Pulse Ox 99 96 Oxygen Delivery Method Room Air Room Air MDM MDM MDM Narrative Medical decision making narrative: 49-year-old male with past medical history of DM2, PTSD, depression presents for wound check evaluation. Patient states on 01/23 he dropped a folding table onto his left foot. Obtained a abrasion to the lateral foot proximal to the fifth toe. states that the area appeared red a couple days ago and she is concerned for infection. Redness has improved. Patient states he has mild pain in the area. He denies any systemic infectious symptoms. See physical exam findings. Patient has a healing abrasion/callus. No signs of infection. No cellulitis. Differential diagnosis includes but is not limited to healing wound, fracture. I did offer x-ray of the foot to assess for fracture. Patient declined. States he has been walking on the foot without difficulty. States he knows that it is not broken and does not want x-ray performed. I personally explained to him that choosing to do so may result in permanent bodily harm as I cannot rule out fracture without x-ray although I do agree that I think this is less likely. Patient states he understands but would like to decline x-ray. Given patient has systemic symptoms without any signs of infection on physical exam I do not think any further imaging or laboratory workup is needed. Patient's wound is consistent with normal healing. Patient stable to discharge home. Follow-up with PCP. Monitor for signs of infection. Patient confirmed understanding of the plan. Impression: 1. Left lateral foot wound, healing 2. History of left foot injury Lab Data Labs: Laboratory Results - last 24 hr 02/04/25 20:33 POC Glucose 447 H Discharge Plan Triage Chief Complaint: Lower Extremity Injury ED Provider: Onesimo So Dx/Rx/DC Orders Clinical Impression: Visit for wound check Instructions: ED Wound Care Prescriptions: No Action metformin 500 mg tablet 500 mg PO BID Qty: 180 3RF Primary Care Provider: Ivy George Referrals: Ivy George MD [Primary Care Provider] - 3-5 Days Activity Restrictions/Additional Instructions: Monitor signs of infection. Return back to ED symptoms change or worsen. Follow-up with your PCP. Print Language: Citizen Of [place] Disposition Disposition: Home, Self Care
--- NOTE | 2025-02-04 21:40 | RAD_ITS ---
PROCEDURE: CHEST PA AND LATERAL 02/04/2025 REASON FOR EXAM: HYPERTENSION TECHNIQUE: Procedure Code: RADCXR Modality: DX Procedure: CHEST PA AND LATERAL COMPARISON: 05/24/2021 FINDINGS: Lungs/Pleura: Clear. No pneumothorax or pleural effusion. Heart/Mediastinum: Within normal limits. No vascular congestion. Bones/Soft tissues: No significant abnormality. RAD/Chest PA and Lateral IMPRESSION: No acute cardiopulmonary disease. Reading Location: [facility]
[2025-02-04 21:55] LABS: Hematocrit 42.2 % (40-54); Hemoglobin 15.1 g/dL (13.0-16.5); Immature Granulocytes Count 0.060 X10^3/uL (0.0-0.0); Mean Corp Hgb Conc 35.8 g/dL (32-36); Mean Corpuscular Volume 83.4 fL (80-94); Mean Platelet Vol. 9.4 fl (6.2-12.0); NRBC Flagged by Analyzer 0 % (0-5); Platelet Count 327 K/mm3 (150-450); RBC Distribution Width CV 11.4 % (11.6-14.6); RBC Distribution Width SD 34.3 fl (35.1-43.9); Red Blood Count 5.06 M/mm3 (4.6-6.2); White Blood Count 10.0 K/mm3 (4.4-11.0)
[2025-02-04 22:42] LABS: Anion Gap 12 (5-15); BUN 18 mg/dL (4-19); BUN/Creat Ratio 12.7 RATIO (10-20); Calcium,Total 9.3 mg/dL (7.6-11.0); Carbon Dioxide 23.8 mmol/L (21.0-32.0); Chloride 96 mmol/L (98-108); Estimated Creatinine Clearance 65.48 ml/min (50-250); Glucose 434 mg/dL (70-99); Potassium 4.9 mmol/L (3.3-5.1); Troponin T High Sensitivity 16 ng/L (<=22)
[2025-02-04] MEDS: 0.9% Normal Saline (1000mL) 1,000 ML 1000 ML IV (23:09)
[2025-02-04] MEDS: Insulin Lispro 5 UNIT in Syringe 0 ML 3 UNIT IV (23:09)
[2025-02-05 00:28] LABS: Troponin T High Sens 2 HR 17 ng/L (<=22)
[2025-02-05 00:54] VITALS: BP 150/60; PULSE 100; RESP 16; TEMP 36.4; O2SAT 98
== END 2025-02-05 00:55 | disposition home or self-care (01) ==
PROVIDERS: Emergency Provider Surgery; Visit Provider Surgery
DX: S90.812A Abrasion, left foot, initial encounter (principal); E11.65 Type 2 diabetes mellitus with hyperglycemia; Z87.891 Personal history of nicotine dependence; I16.0 Hypertensive urgency; N28.9 Disorder of kidney and ureter, unspecified; W22.8XXA Striking against or struck by other objects, initial encounter
CPT/HCPCS: 71046; 80048; 82962; 84484; 85025; 93005; 96361; 96374; 96375; 99283; A4216